=== PATIENT | female | born 1955 | race Caucasian/White ===

== ENCOUNTER → 2016-11-12 | Outpatient (CLI) | payer BC ==
--- NOTE | 2016-11-12 10:48 | REPMRS ---
Patient History The patient states she had a clinical breast exam in 11/2016. Patient is postmenopausal. Family history of breast cancer in maternal aunt, breast cancer in paternal aunt, and prostate cancer in maternal uncle at age 50 or over. Benign ultrasound-guided FNA biopsy of the right breast, July 19, 2007. Taking unspecified hormones for 4 years. Digital Woman Screen Mammo: November 12, 2016 - Exam #: [id number] Bilateral CC and MLO view(s) were taken. Technologist: Sophie Roberts, Technologist Prior study comparison: October 24, 2015, digital woman screen mammo performed at [facility]. August 29, 2014, digital woman screen mammo performed at [facility]. August 29, 2013, digital woman screen mammo performed at [facility]. FINDINGS: There are scattered fibroglandular densities. There has been no change in the appearance of the mammogram from the prior studies. There is a needle biopsy marker clip in the right breast. There is a mild amount of scattered fibroglandular density which is fairly symmetric. There is no interval development of dominant mass, architectural distortion, or clustered microcalcification suggestive of malignancy. ASSESSMENT: BI-RADS/ACR category 2 mammogram. Benign finding(s). Recommendation Routine screening mammogram in 1 year (for women over age 40). This mammogram was interpreted with the aid of an FDA-approved computer-aided dectection system. Electronically Signed By: Jose Luis Santiago MD 11/12/16 1048
== END ==
LOC: M WHC 08:17
PROVIDERS: ATTEND Nurse Practitioner Family
DX: Z12.31 Encounter for screening mammogram for malignant neoplasm of breast (principal)

== ENCOUNTER 2016-11-18 17:36 | Inpatient (IN) | payer BC, SELFPAY ==
[~2016-11-18] VITALS: Ht 144.8 cm; Wt 77.8 kg
[2016-11-18] MEDS ORDERED: ONDANSETRON 4MG/2ML VIAL (J2405) As Ordered ONE ×3 (18:37→22:51)
[2016-11-18 19:03] LABS: BASO % 0.1 % (0.0-1.0); EOS # 0.1 K/mm3 (0.0-0.50); EOS % 0.5 % (0.0-3.0); LARGE UNSTAINED CELL # 0.1 K/mm3 (0.0-0.4); LARGE UNSTAINED CELL % 0.6 % (0.0-4.0); LYMPH # 1.1 K/mm3 (1.5-4.5); LYMPH % 6.4 % (24.0-44.0); MEAN CORPUSCULAR HEMOGLOBIN 30.7 pg (27.0-33.0); MEAN CORPUSCULAR HGB CONC 33.4 g/dl (32.0-36.5); MEAN CORPUSCULAR VOLUME 91.7 fl (80.0-96.0); MONO % 6.3 % (0.0-5.0); NEUTROPHILS # 13.4 K/mm3 (1.8-7.7); NEUTROPHILS % 86.1 % (36.0-66.0); PLATELET COUNT, AUTOMATED 207 k/mm3 (150-450); RED CELL DISTRIBUTION WIDTH 13.3 % (11.5-14.5); WHITE BLOOD COUNT 15.6 K/mm3 (4.0-10.0)
[2016-11-18 19:18] LABS: ALBUMIN/GLOBULIN RATIO 1.11 (1.00-1.93); ALKALINE PHOSPHATASE 115 U/L (45-117); ALT/SGPT 37 U/L (12-78); ANION GAP 10 MEQ/L (8-16); AST/SGOT 27 U/L (15-37); BILIRUBIN,DIRECT 0.2 MG/DL (0.0-0.2); BILIRUBIN,TOTAL 0.7 MG/DL (0.2-1.0); BLOOD UREA NITROGEN 13 MG/DL (7-18); CARBON DIOXIDE LEVEL 26 MEQ/L (21-32); CHLORIDE LEVEL 102 MEQ/L (98-107); CREATININE FOR GFR 0.81 MG/DL (0.55-1.02); GLOMERULAR FILTRATION RATE > 60.0 (>51); GLUCOSE, FASTING 126 MG/DL (70-105); POTASSIUM SERUM 4.6 MEQ/L (3.5-5.1); SODIUM LEVEL 138 MEQ/L (136-145); TOTAL PROTEIN 7.6 GM/DL (6.4-8.2)
[2016-11-18] MEDS ORDERED: ISOVUE-370 76% 100ML VIAL (Q9967) As Ordered ONE (19:25)
[2016-11-18] MEDS ORDERED: MORPHINE 4 MG/ML 1ML SYRINGE As Ordered ONE (19:54)
--- NOTE | 2016-11-18 20:40 | REPUSA ---
CT of the abdomen and pelvis with contrast Clinical statement: Pain. Technique: Multiple axial CT images were obtained from the base of the lungs through the floor of the pelvis utilizing 5 mm axial slices after administration of nonionic intravenous contrast. Coronal an d sagittal reconstructions were also obtained. No comparison is available. Findings: Chest: The visualized lung bases are clear. Abdomen: The liver, spleen, pancreas, kidneys, gallbladder, and adrenal glands are unremarkable. The aorta is within normal limits. There is no evidence of abdominal lymphadenopathy or ascites. Pelvis: The appendix is significantly thickened and inflamed, measuring 17 mm in diameter. Surroundin g inflammatory stranding is noted, but no surrounding free fluid is seen. There is no evidence of per foration or abscess. The remainder of the bowel is unremarkable. The urinary bladder is within normal limits. The other pelvic structures appear grossly intact. There is no evidence of pelvic lymphadeno gen. There is a small amount of free fluid in the cul-de-sac. Bones: There are no suspicious osseous abnormalities seen. Impression: Acute appendicitis as described. ER physician was notified of these findings at 8:35 PM o n 11/18/2016.
[2016-11-18] MEDS ORDERED: VITMTA PO (21:26)
[2016-11-18] MEDS ORDERED: VERA27.5 (21:26)
[2016-11-18] MEDS ORDERED: FEXO180T58 PO (21:26)
[2016-11-18] MEDS ORDERED: ASPI81CH PO (21:26)
[2016-11-18] MEDS ORDERED: CALC1TAB30 PO (21:26)
[2016-11-18] MEDS ORDERED: ACET50TAOT PO (21:28)
[2016-11-18] MEDS ORDERED: PARO-39 PO (21:28)
[2016-11-18] MEDS ORDERED: AMLO5TAB2 PO (21:28)
[2016-11-18] MEDS ORDERED: SIMV40TA2 PO (21:28)
[2016-11-18] MEDS ORDERED: BENI20TA5 PO (21:28)
[2016-11-18] MEDS ORDERED: BUPIVACAINE/EPIN 0.25% 30 ML VIAL As Ordered ONE (21:35)
[2016-11-18] MEDS ORDERED: ZOSYN 3.375 GM VIAL (J2543) As Ordered ONE (21:46)
[2016-11-18] MEDS ORDERED: SENN1TAB2 PO (21:50)
[2016-11-18] MEDS ORDERED: NORC5TAB PO (21:50)
--- NOTE | 2016-11-18 22:01 | EDDOCDS ---
Physician Documentation [facility] Name: Casandra Gilliland Age: 61 yrs Sex: Female : 1955 Arrival Date: 11/18/2016 Time: 17:36 Bed I1 / M1 Private MD: Warren Lundberg MD Disposition: 11/18/16 21:22 Hospitalization ordered by Derik Mazariegos for Inpatient Admission. Preliminary diagnosis is Acute appendicitis with localized peritonitis. - Bed requested for Admit. - Status is Inpatient Admission. cf2 - Condition is Stable. - Problem is new. - Symptoms are unchanged. Historical: - Allergies: Nickel (Rash); SULFA (SULFONAMIDES) (Rash); Latex (Rash); Augmentin (Rash); - Home Meds: 1. aspirin 81 mg Oral tab 1 tab once daily (Last dose: 11/18/2016 04:30) 2. tramadol 50 mg Oral tab 1 tab every 4-6 hours as needed (Last dose: Unknown) 3. Veramyst 27.5 mcg/actuation nasal spsn 2 sprays once daily as needed (Last dose: Unknown) 4. multivitamin Oral tab 1 tablet daily (Last dose: 11/18/2016 04:30) 5. Oyster Shell Calcium-Vit D3 500 mg(1,250mg) -200 unit Oral tab daily (Last dose: 11/18/2016 04:30) 6. fexofenadine 180 mg Oral tab 1 tab once daily as needed (Last dose: Unknown) 7. pravastatin 40 mg oral tab 2 tabs nightly (Last dose: 11/17/2016) 8. allergy injections every 3 weeks 9. Benicar 20 mg oral tab 1 tab once daily (Last dose: 11/18/2016 04:30) 10. amlodipine 5 mg Oral tab 1 tab once daily (Last dose: 11/18/2016 04:30) - PMHx: allergies; Hypertension; Hypercholesterolemia; back pain; - PSHx: Hysterectomy; Biopsy, Breast- Right; skin graft left ear; polyps removed from uterus; - Social history: Smoking status: Patient states former smoker of tobacco. No barriers to communication noted, The patient speaks fluent Albanian. - Family history: Not pertinent. - : The pt / caregiver states he / she is not on anticoagulants. Home medication list is obtained from the patient. - Exposure Risk Screening:: None identified. Vital Signs: 11/18 17:40 BP 158 / 88; Pulse 68; Resp 18; Temp 98.3; Pulse Ox 99% ; Weight 75.3 kg / 166.01 lbs; elp Height 4 ft. 11 in. (149.86 cm); 21:57 BP 130 / 79; Pulse 70; Resp 18; Temp 99.2(TE); Pulse Ox 96% on R/A; Pain 8/10; mdr 17:40 Body Mass Index 33.53 (75.30 kg, 149.86 cm) elp MDM: 18:33 NS 0.9% 1000 ml IV at bolus once ordered. mo1 18:33 Ondansetron 4 mg IVP once ordered. mo1 18:33 IV Saline Lock ordered. mo1 18:33 Undress patient appropriately for examination ordered. mo1 18:33 CT ABD & PELVIS: IV Contrast Only Ordered. EDMS 18:34 Basic Metabolic Profile Ordered. EDMS 18:34 CBC with Diff Ordered. EDMS 18:34 Lipase Ordered. EDMS 18:34 Liver Profile Ordered. EDMS 18:34 Urinalysis Ordered. EDMS 18:34 Urine Culture Ordered. EDMS 18:35 NOTHING BY MOUTH+DIET ordered. EDMS 18:58 Financial registration complete. gjb 19:03 [facility] Payment Agreement was scanned into [employer] and attached to record. gjb 19:39 morphine 4 mg IVP once ordered. mo1 19:39 Ondansetron 4 mg IVP once ordered. mo1 19:39 CBC with Diff Reviewed. mo1 19:40 Basic Metabolic Profile Reviewed. mo1 19:40 Lipase Reviewed. mo1 19:40 Liver Profile Reviewed. mo1 20:09 Urinalysis Reviewed. mo1 20:38 BED REQUEST+ADM ordered. EDMS 21:05 ECG WITH READING ER PHYS+CARDIAG ordered. EDMS 21:22 Admission Orders was scanned into [employer] and attached to record. ml3 Administered Medications: 18:48 Drug: NS 0.9% 1000 ml [sodium chloride 0.9 % intravenous solution] Route: IV; Rate: kr3 bolus; Site: left hand; 18:48 Drug: Ondansetron 4 mg Route: IVP; Site: left hand; kr3 20:00 Drug: morphine 4 mg [morphine 4 mg/mL intravenous cartridge (1 mL)] Route: IVP; Site: cf2 left antecubital; 20:00 Drug: Ondansetron 4 mg Route: IVP; Site: left antecubital; cf2 Signatures: Dispatcher [employer] Gudelia Mcelroy, RN RN j Aubrey Kauffmanzabeth, Customs Compliance Director Unit ml3 Jong Addison PA PA mo1 Larissa Mack Christina, RN RN cf2 Rossy Rodríguez RN kr3 The chart was reviewed and I authenticate all verbal orders and agree with the evaluation and treatment provided.Attachments: 19:03 [facility] Payment Agreement gj 21:22 Admission Orders ml3 MTDD
--- NOTE | 2016-11-18 22:01 | EDDOCDS ---
Nurse's Notes [facility] Name: Casandra Gilliland Age: 61 yrs Sex: Female : 1955 Arrival Date: 11/18/2016 Time: 17:36 Bed I1 / M1 Private MD: Warren Lundberg MD Diagnosis: Acute appendicitis with localized peritonitis Presentation: 11/18 17:48 Presenting complaint: Patient states: right flank and abdominal since 1030 this [facility] morning, seen at Urgent care , sent here for evaluation. Adult Sepsis Screening: The patient does not have new or worsening altered mentation. Patient's respiratory rate is less than 22. Systolic blood pressure is greater than 100. Patient has a qSOFA score of. Suicide/Homicide risk assessment- the patient denies having any suicidal and/or homicidal ideations and does not present with any other emotional, behavioral or mental health complaints. Status: Patient is not a service desk director or dependent. Transition of care: Patient was received from [facility]. 17:48 Acuity: ANN-MARIE Level 3 [facility] 17:48 Method Of Arrival: Walkin/Carried/Asstd [facility] Triage Assessment: 17:57 General: Appears uncomfortable, Behavior is appropriate for age, pleasant. Pain: [facility] Location: right flank Pain currently is 9 out of 10 on a pain scale. Pain radiates to right lower quadrant. Pt Declines HIV testing. Neurological: Level of Consciousness is awake, alert, Oriented to person, place, time. Respiratory: Airway is patent Respiratory effort is even, unlabored, Respiratory pattern is regular, symmetrical. GI: Reports lower abdominal pain, nausea, Pain is 9 out of 10 on a pain scale. : Reports pain in right flank(s) Pain is 9 out of 10 on a pain scale. Derm: Skin is pink, warm & dry. Historical: - Allergies: Nickel (Rash); SULFA (SULFONAMIDES) (Rash); Latex (Rash); Augmentin (Rash); - Home Meds: 1. aspirin 81 mg Oral tab 1 tab once daily (Last dose: 11/18/2016 04:30) 2. tramadol 50 mg Oral tab 1 tab every 4-6 hours as needed (Last dose: Unknown) 3. Veramyst 27.5 mcg/actuation nasal spsn 2 sprays once daily as needed (Last dose: Unknown) 4. multivitamin Oral tab 1 tablet daily (Last dose: 11/18/2016 04:30) 5. Oyster Shell Calcium-Vit D3 500 mg(1,250mg) -200 unit Oral tab daily (Last dose: 11/18/2016 04:30) 6. fexofenadine 180 mg Oral tab 1 tab once daily as needed (Last dose: Unknown) 7. pravastatin 40 mg oral tab 2 tabs nightly (Last dose: 11/17/2016) 8. allergy injections every 3 weeks 9. Benicar 20 mg oral tab 1 tab once daily (Last dose: 11/18/2016 04:30) 10. amlodipine 5 mg Oral tab 1 tab once daily (Last dose: 11/18/2016 04:30) - PMHx: allergies; Hypertension; Hypercholesterolemia; back pain; - PSHx: Hysterectomy; Biopsy, Breast- Right; skin graft left ear; polyps removed from uterus; - Social history: Smoking status: Patient states former smoker of tobacco. No barriers to communication noted, The patient speaks fluent Albanian. - Family history: Not pertinent. - : The pt / caregiver states he / she is not on anticoagulants. Home medication list is obtained from the patient. - Exposure Risk Screening:: None identified. Screenin:50 Screening information is obtained from the patient. Fall risk: No risks identified. rs3 Assistance ADL's: requires no assistance with activities of daily living. Abuse/DV Screen: The patient / caregiver reports he/she is: not in a situation that causes fear, pain or injury. Nutritional screening: No deficits noted. Advance Directives: Currently, there is no health care proxy. There is no active DNR order. home support is adequate. Assessment: 18:49 General: Appears in no apparent distress, Behavior is appropriate for age, cooperative. rs3 Pain: Location: right lower quadrant. Neurological: Level of Consciousness is awake, alert, Oriented to person, place, time. Respiratory: Airway is patent Respiratory effort is even, unlabored. GI: Abdomen is non- distended Bowel sounds present X 4 quads. Abd is soft X 4 quads Abd is tender to palpation in suprapubic area and right lower quadrant. Derm: Skin is pink, warm & dry. 19:22 Adult Sepsis Screening: The patient does not have new or worsening altered mentation. dsf Patient's respiratory rate is less than 22. Systolic blood pressure is greater than 100. Patient has a qSOFA score of 0- Negative Sepsis Screen. General: Appears in no apparent distress, Behavior is appropriate for age, cooperative. Neurological: Level of Consciousness is awake, alert. Cardiovascular: Capillary refill < 3 seconds. Respiratory: Airway is patent Respiratory effort is even, unlabored, Respiratory pattern is regular, symmetrical. Derm: Skin is pink, warm & dry. 20:37 Reassessment: Patient resting more comfortably, PA over to speak with patient, cf2 +appendicitis . 21:59 General: Appears comfortable, Behavior is appropriate for age, cooperative. cf2 Vital Signs: 17:40 BP 158 / 88; Pulse 68; Resp 18; Temp 98.3; Pulse Ox 99% ; Weight 75.3 kg; Height 4 ft. elp 11 in. (149.86 cm); 21:57 BP 130 / 79; Pulse 70; Resp 18; Temp 99.2(TE); Pulse Ox 96% on R/A; Pain 8/10; mdr 17:40 Body Mass Index 33.53 (75.30 kg, 149.86 cm) [facility] Vitals: 17:40 Log In Time: November 18, 2016 at 17:38. [facility] ED Course: 17:37 Patient visited by Laurel Colon PCA. elp 17:37 Patient moved to Waiting elp 17:38 Warren Lundberg is Private Physician. elp 17:40 Patient visited by Laurel Colon PCA. elp 17:40 Patient moved to Pre RCE elp 17:49 Triage Initiated kpj 18:07 Patient moved to Triage 1 mdr 18:15 Jong Addison PA is PHCP. mo1 18:15 Milana Daniel MD is Attending Physician. mo1 18:28 Patient moved to I1 / M1 dsf 18:32 Patient visited by Jong Addison PA. mo1 18:48 Inserted saline lock: 22 gauge in left hand The patient tolerated the procedure well. kr3 18:48 Basic Metabolic Profile Sent. kr3 18:48 CBC with Diff Sent. kr3 18:48 Lipase Sent. kr3 18:48 Liver Profile Sent. kr3 18:51 No procedures done that require assistance. rs3 19:03 [facility] Payment Agreement was scanned into [employer] and attached to record. gjb 19:14 Sammi Ortega,TAMI is Primary Nurse. cf2 19:14 Patient visited by Sammi Ortega RN. cf2 19:16 Patient visited by Sammi Ortega RN. cf2 19:22 Urinalysis Sent. dsf 19:22 Urine Culture Sent. dsf 19:23 Patient visited by Ely Hodges RN. dsf 20:04 Patient visited by Sammi Ortega RN. cf2 20:37 Patient visited by Sammi Ortega RN. cf2 20:37 The patient / caregiver is instructed regarding the plan of care and ED course. Patient cf2 has correct armband on for positive identification. Placed in gown. Bed in low position. Call light in reach. Side rails up X 1. Side rails up X2. Property :Personal belongings accompany Pt. Door closed. Noise minimized. Visitors limited. Lights dimmed. Moved to private room. Verbal reassurance given. Warm blanket given. Pillow given. Head of bed elevated. Diet: Patient is NPO. 21:12 CT ABD & PELVIS: IV Contrast Only Returned. EDMS 21:22 Patient visited by Sammi Ortega RN. cf2 21:22 Derik Mazariegos DO is Hospitalizing Provider. mo1 21:22 Admission Orders was scanned into [employer] and attached to record. ml3 21:34 EKG done. (by ED staff). Reviewed by Jong LUKE. mdr 21:35 Patient visited by Andres العراقي, GENERAL MANAGER LAND DEPARTMENT. mdr 21:58 Patient visited by Andres العراقي, GENERAL MANAGER LAND DEPARTMENT. mdr Administered Medications: 18:48 Drug: NS 0.9% 1000 ml [sodium chloride 0.9 % intravenous solution] Route: IV; Rate: kr3 bolus; Site: left hand; 18:48 Drug: Ondansetron 4 mg Route: IVP; Site: left hand; kr3 20:00 Drug: morphine 4 mg [morphine 4 mg/mL intravenous cartridge (1 mL)] Route: IVP; Site: cf2 left antecubital; 20:00 Drug: Ondansetron 4 mg Route: IVP; Site: left antecubital; cf2 Order Results: Lab Order: Basic Metabolic Profile; SPEC'M 11/18/16 18:43 Test: GLUCOSE, FASTING; Value: 126; Range: 70-105; Abnormal: Above high normal; Units: MG/DL; Status: F Test: BLOOD UREA NITROGEN; Value: 13; Range: 7-18; Units: MG/DL; Status: F Test: CREATININE FOR GFR; Value: 0.81; Range: 0.55-1.02; Units: MG/DL; Status: F Test: GLOMERULAR FILTRATION RATE; Value: > 60.0; Range: >51; Status: F Test: SODIUM LEVEL; Value: 138; Range: 136-145; Units: MEQ/L; Status: F Test: POTASSIUM SERUM; Value: 4.6; Range: 3.5-5.1; Units: MEQ/L; Status: F Test: CHLORIDE LEVEL; Value: 102; Range: 98-107; Units: MEQ/L; Status: F Test: CARBON DIOXIDE LEVEL; Value: 26; Range: 21-32; Units: MEQ/L; Status: F Test: ANION GAP; Value: 10; Range: 8-16; Units: MEQ/L; Status: F Test: CALCIUM LEVEL; Value: 9.0; Range: 8.5-10.1; Units: MG/DL; Status: F Test Note: ; Units are mL/min/1.73 m2 Chronic Kidney Disease Staging per NKF: Stage I & II GFR >=60 Normal to Mildly Decreased Stage III GFR 30-59 Moderately Decreased Stage IV GFR 15-29 Severely Decreased Stage V GFR <15 Very Little GFR Left ESRD GFR <15 on HOUSE MANAGER Lab Order: CBC with Diff; SPEC'M 11/18/16 18:43 Test: WHITE BLOOD COUNT; Value: 15.6; Range: 4.0-10.0; Abnormal: Above high normal; Units: K/mm3; Status: F Test: RED BLOOD COUNT; Value: 4.81; Range: 4.00-5.40; Units: M/mm3; Status: F Test: HEMOGLOBIN; Value: 14.7; Range: 12.0-16.0; Units: g/dl; Status: F Test: HEMATOCRIT; Value: 44.1; Range: 36.0-47.0; Units: %; Status: F Test: MEAN CORPUSCULAR VOLUME; Value: 91.7; Range: 80.0-96.0; Units: fl; Status: F Test: MEAN CORPUSCULAR HEMOGLOBIN; Value: 30.7; Range: 27.0-33.0; Units: pg; Status: F Test: MEAN CORPUSCULAR HGB CONC; Value: 33.4; Range: 32.0-36.5; Units: g/dl; Status: F Test: RED CELL DISTRIBUTION WIDTH; Value: 13.3; Range: 11.5-14.5; Units: %; Status: F Test: PLATELET COUNT, AUTOMATED; Value: 207; Range: 150-450; Units: k/mm3; Status: F Test: NEUTROPHILS %; Value: 86.1; Range: 36.0-66.0; Abnormal: Above high normal; Units: %; Status: F Test: LYMPH %; Value: 6.4; Range: 24.0-44.0; Abnormal: Below low normal; Units: %; Status: F Test: MONO %; Value: 6.3; Range: 0.0-5.0; Abnormal: Above high normal; Units: %; Status: F Test: EOS %; Value: 0.5; Range: 0.0-3.0; Units: %; Status: F Test: BASO %; Value: 0.1; Range: 0.0-1.0; Units: %; Status: F Test: LARGE UNSTAINED CELL %; Value: 0.6; Range: 0.0-4.0; Units: %; Status: F Test: NEUTROPHILS #; Value: 13.4; Range: 1.8-7.7; Abnormal: Above high normal; Units: K/mm3; Status: F Test: LYMPH #; Value: 1.1; Range: 1.5-4.5; Abnormal: Below low normal; Units: K/mm3; Status: F Test: MONO #; Value: 1.0; Range: 0.0-0.8; Abnormal: Above high normal; Units: K/mm3; Status: F Test: EOS #; Value: 0.1; Range: 0.0-0.50; Units: K/mm3; Status: F Test: BASO #; Value: 0.0; Range: 0.0-0.2; Units: K/mm3; Status: F Test: LARGE UNSTAINED CELL #; Value: 0.1; Range: 0.0-0.4; Units: K/mm3; Status: F Lab Order: Lipase; [facility] 11/18/16 18:43 Test: LIPASE; Value: 131; Range: 73-393; Units: U/L; Status: F Lab Order: Liver Profile; [facility] 11/18/16 18:43 Test: AST/SGOT; Value: 27; Range: 15-37; Units: U/L; Status: F Test: ALT/SGPT; Value: 37; Range: 12-78; Units: U/L; Status: F Test: ALKALINE PHOSPHATASE; Value: 115; Range: 45-117; Units: U/L; Status: F Test: BILIRUBIN,TOTAL; Value: 0.7; Range: 0.2-1.0; Units: MG/DL; Status: F Test: BILIRUBIN,DIRECT; Value: 0.2; Range: 0.0-0.2; Units: MG/DL; Status: F Test: TOTAL PROTEIN; Value: 7.6; Range: 6.4-8.2; Units: GM/DL; Status: F Test: ALBUMIN; Value: 4.0; Range: 3.2-5.2; Units: GM/DL; Status: F Test: ALBUMIN/GLOBULIN RATIO; Value: 1.11; Range: 1.00-1.93; Status: F Lab Order: Urinalysis; [facility] 11/18/16 19:20 Test: APPEARANCE, URINE; Value: CLEAR; Range: CLEAR; Status: F Test: COLOR, URINE; Value: YELLOW; Range: YELLOW; Status: F Test: PH,URINE; Value: 7.0; Range: 5.0-9.0; Units: UNITS; Status: F Test: SPECIFIC GRAVITY URINE AUTO; Value: 1.020; Range: 1.002-1.035; Status: F Test: PROTEIN, URINE AUTO; Value: NEGATIVE; Range: NEGATIVE; Units: mg/dL; Status: F Test: GLUCOSE, URINE (UA) AUTO; Value: NEGATIVE; Range: NEGATIVE; Units: mg/dL; Status: F Test: KETONE, URINE AUTO; Value: 1+; Range: NEGATIVE; Abnormal: Above high normal; Units: mg/dL; Status: F Test: UROBILINOGEN, URINE AUTO; Value: 0.2; Range: 0.0-2.0; Units: mg/dL; Status: F Test: BILIRUBIN, URINE AUTO; Value: NEGATIVE; Range: NEGATIVE; Status: F Test: NITRITE, URINE AUTO; Value: NEGATIVE; Range: NEGATIVE; Status: F Test: LEUKOCYTE ESTERASE, URINE AUTO; Value: NEGATIVE; Range: NEGATIVE; Status: F Test: BLOOD, URINE BLOOD; Value: NEGATIVE; Range: NEGATIVE; Status: F Test: WBC, URINE AUTO; Value: 0; Range: 0-3; Units: /HPF; Status: F Test: RBC, URINE AUTO; Value: 2; Range: 0-3; Units: /HPF; Status: F Test: BACTERIA, URINE AUTO; Value: NEGATIVE; Range: NEGATIVE; Status: F Test: SQUAMOUS EPITHELIAL CELL UR AU; Value: 0; Range: 0-6; Units: /HPF; Status: F Test: MUCUS, URINE; Value: SMALL; Range: NEGATIVE; Status: F Test: HYALINE CAST, URINE AUTO; Value: 0; Range: 0-1; Units: /LPF; Status: F Radiology Order: CT ABD & PELVIS: IV Contrast Only Test: CT ABD & PELVIS: IV Contrast Only REASON FOR EXAMINATION: lower abd pain, worse on right; ; CT of the abdomen and pelvis with contrast; Clinical statement: Pain.; Technique: Multiple axial CT images were obtained from the base of the lungs through the floor of the; pelvis utilizing 5 mm axial slices after administration of nonionic intravenous contrast. Coronal an; d sagittal reconstructions were also obtained.; No comparison is available.; Findings:; Chest: The visualized lung bases are clear.; Abdomen: The liver, spleen, pancreas, kidneys, gallbladder, and adrenal glands are unremarkable. The; aorta is within normal limits. There is no evidence of abdominal lymphadenopathy or ascites.; Pelvis: The appendix is significantly thickened and inflamed, measuring 17 mm in diameter. Surroundin; g inflammatory stranding is noted, but no surrounding free fluid is seen. There is no evidence of per; foration or abscess. The remainder of the bowel is unremarkable. The urinary bladder is within normal; limits. The other pelvic structures appear grossly intact. There is no evidence of pelvic lymphadeno; gen. There is a small amount of free fluid in the cul-de-sac.; Bones: There are no suspicious osseous abnormalities seen.; Impression: Acute appendicitis as described. ER physician was notified of these findings at 8:35 PM o; n 11/18/2016.; ; Outcome: 21:22 Decision to Hospitalize by Provider. mo1 21:59 Discharge Assessment: Patient awake, alert and oriented x 3. No cognitive and/or cf2 functional deficits noted. Patient verbalized understanding of disposition instructions. Patient awake and alert. Oriented to person, place and time. patient administered narcotics - yes. The following High Risk Discharge criteria are identified: None. Admitted to OR. Condition: good Condition: stable. CT Study completed. 22:00 Patient left the ED. cf2 Signatures: Dispatcher [employer] EDMS Gudelia Chou, RN RN Cameron Caravjal, Case Filler Unit ml3 Rossy RodríguezRN RN kr3 Roslyn DialloRN RN rs3 Ely Hodges,RN RN dsJong Larson PA PA mo1 Laurel Colon, GENERAL MANAGER LAND DEPARTMENT GENERAL MANAGER LAND DEPARTMENT andreasp Andres العراقي, GENERAL MANAGER LAND DEPARTMENT GENERAL MANAGER LAND DEPARTMENT Larissa Cha Christina,RN RN cf2 MTDStephanie
[2016-11-18] MEDS ORDERED: PROPOFOL 200 MG/20 ML VIAL As Ordered ONE (22:51)
[2016-11-18] MEDS ORDERED: MIDAZOLAM INJ 2 MG/2 ML VIAL (J2250) As Ordered ONE (22:51)
[2016-11-18] MEDS ORDERED: LIDOCAINE 2% INJ 100 MG/5 ML SDV (FOR ANES.) As Ordered ONE (22:51)
[2016-11-18] MEDS ORDERED: fentaNYL 250 MCG/5 ML INJECTION (J3010) As Ordered ONE (22:51)
[2016-11-18] MEDS ORDERED: METOCLOPRAMIDE INJ 10MG/2ML VIAL (J2765) As Ordered ONE (22:51)
[2016-11-18] MEDS ORDERED: KETOROLAC 60 MG/2 ML VIAL (J1885) As Ordered ONE (22:51)
[2016-11-18] MEDS ORDERED: PHENYLephrine HCL 500 MCG/5 ML (100MCG/ML) SYRINGE (J2370) As Ordered ONE (22:51)
[2016-11-18] MEDS ORDERED: NEOSTIGMINE 1MG/ML 5 ML SYRINGE (J2710) As Ordered ONE (22:51)
[2016-11-18] MEDS ORDERED: GLYCOPYRROLATE INJ 0.2 MG/ML 2 ML VIAL As Ordered ONE (22:52)
[2016-11-18] MEDS ORDERED: ROCURONIUM BROMIDE 50 MG/5 ML VIAL As Ordered ONE (22:52)
--- NOTE | 2016-11-18 22:53 | HPE ---
DATE OF ADMISSION: 11/18/2016 REASON FOR CONSULTATION: Abdominal pain. HISTORY OF PRESENT ILLNESS: The patient is a 61-year-old female who started with right lower quadrant abdominal pain around 10:30 this morning. The pain got progressive worse throughout the day. Her coworkers talked her into coming to the emergency room for evaluation. In the ER she had elevated white count as well as CT findings positive for appendicitis. I was called to evaluate. On examination, the patient is complaining of nausea, right lower quadrant pain. She has not had any trauma to the area. No recent travel. No recent illnesses. No change in bowel or bladder habits. No fevers. PAST MEDICAL HISTORY: Hypertension, hyperlipidemia. PAST SURGICAL HISTORY: Tonsillectomy, tubal ligation, hysterectomy. Skin graft, breast biopsy. ALLERGIES: SULFA, AMOXICILLIN. HOME MEDICATIONS: Please see medical record. REVIEW OF SYSTEMS: Pertinent positives and negatives stated in the HPI. PHYSICAL EXAMINATION: General: Alert and oriented times three. No acute distress. Vital signs: Stable, afebrile. HEENT: Pupils equal, round, react to light and accommodation. Heart: S1-S2, regular rate and rhythm. Lungs clear to auscultation bilaterally. Abdomen soft, tender to palpation right lower quadrant. No rebounding or rigidity. Bowel sounds positive. Extremities: No clubbing, cyanosis or edema. LABORATORY DATA: White count 15.6, hemoglobin 14.7, platelets 207. Potassium 4.6, creatinine 0.81. IMAGING STUDIES: CT abdomen and pelvis shows a dilated appendix at 17 mm. It is thickened and inflamed with surrounding inflammatory fat stranding. No signs of free fluid in the pelvis. No signs of the appendiceal rupture. ASSESSMENT/PLAN: The patient 61-year-old female with signs consistent with acute appendicitis. RECOMMENDATIONS: Proceed with laparoscopic, possible open appendectomy. Risks and benefits of the procedure not limited but including bleeding, infection, hernia formation, damage to surrounding structures, need for further surgery discussed in detail with the patient. Informed was obtained and procedure was planned. After surgery she will be discharged home and will follow up with me in the office in 2 weeks.
[2016-11-18] MEDS ORDERED: CIPR500T89 PO (23:11)
[2016-11-18] MEDS ORDERED: FLAG500T PO (23:11)
[2016-11-18] MEDS ORDERED: SUGAMMADEX SODIUM 500 MG/5 ML VIAL (BRIDION) As Ordered ONE (23:16)
[2016-11-18] MEDS ORDERED: LR 1,000 ML IV SCH (23:45)
[2016-11-18] MEDS ORDERED: fentaNYL 100 MCG/2 ML INJECTION (J3010) IV PRN (23:45)
[2016-11-18] MEDS ORDERED: PERCOCET 5MG/325MG TAB PO PRN (23:45)
[2016-11-18] MEDS ORDERED: ePHEDrine SULFATE 25 MG/5 ML(5MG/ML) SYRINGE As Ordered ONE (23:54)
[2016-11-18] MEDS: ePHEDrine SULFATE 25 MG/5 ML(5MG/ML) SYRINGE IV SCH (23:55)
[2016-11-19] VITALS (8 sets, daily range): BP systolic 92–128; BP diastolic 57–74
[2016-11-19] MEDS: ePHEDrine SULFATE 25 MG/5 ML(5MG/ML) SYRINGE IV SCH ×2 (00:05)
[2016-11-19] MEDS ORDERED: ePHEDrine SULFATE 25 MG/5 ML(5MG/ML) SYRINGE IV SCH (00:15)
[2016-11-19] MEDS ORDERED: LR 500 ML IV SCH ×2 (00:45)
[2016-11-19] MEDS ORDERED: PIPERACILLIN/TAZOBACTAM SOD 3.375 GM in D5W MINI-BAG PLUS 50 ML IV ONE (05:15)
[2016-11-19] MEDS ORDERED: ACETAMINOPHEN TAB 650MG DOSE (2X325MG) PO ONE (05:15)
[2016-11-19] MEDS ORDERED: LR 1,000 ML IV SCH (05:15)
--- NOTE | 2016-11-19 06:57 | RO ---
DATE OF PROCEDURE: 11/18/2016 PREOPERATIVE DIAGNOSIS: Acute appendicitis. POSTOPERATIVE DIAGNOSIS: Acute appendicitis. PROCEDURE: Laparoscopic appendectomy. SURGEON: Dr. Derik Mazariegos ENGINEERING PROGRAM MANAGER: None. ANESTHESIA: General: ESTIMATED BLOOD LOSS: 5. COMPLICATIONS: None. INDICATIONS FOR PROCEDURE: The patient is a 61-year-old female who presents with right lower quadrant pain that started at 9:30 this morning. She came in and had an elevated white count as well as CT findings of acute appendicitis. Recommendation was to proceed laparoscopic, possible open appendectomy. Risks and the benefits of the procedure not limited to, but including bleeding, infection, hernia formation, damage to surrounding structures, need for further surgery were discussed in detail with the patient. Informed consent was obtained and the procedure was planned. PROCEDURE: The patient was brought back to operating room three after sufficient sedation and the abdomen was sterilely prepped and draped. Next, a time out was done to confirm proper patient and proper procedure. Following that, a 5 mm incision was made in the left lower quadrant. Veress needle inserted and the abdomen was insufflated to 15 mmHg. Next, the Veress needle was removed. A 5 mm OptiView port was then used to gain access to the abdomen. Once the abdomen was entered, an 8 mm port was placed at the umbilicus and a 5 mm port suprapubically in the midline. The appendix was easily identified in the right lower quadrant. It was very large and inflamed. It was grasped and elevated up and the mesoappendix was taken down using the Enseal. During that process, the appendix burst open on its own. The appendix was then amputated using the PDS Endoloops and then transected using the Enseal and brought out in a 5 mm EndoCatch bag. Next, the suction device was used to aspirate all the contents that had leaked out of the appendix. A couple hundred mL of saline was then irrigated and suctioned out to clear the right lower quadrant. Once this was completed, the abdomen was desufflated. Skin incisions were closed with #4-0 Vicryl subcuticular sutures. The abdomen was cleaned and dried. Steri-Strips, 4x4 and tape were applied, thus ending the procedure.
[2016-11-19] MEDS ORDERED: MORPHINE 2 MG/ML 1ML SYRINGE IV PRN (07:00)
[2016-11-19] MEDS ORDERED: ONDANSETRON 4MG/2ML VIAL (J2405) IV PRN (07:00)
[2016-11-19] MEDS ORDERED: MOM 30ML SUSPENSION UDC PO PRN (07:00)
[2016-11-19 07:21] LABS: MEAN CORPUSCULAR HEMOGLOBIN 30.9 pg (27.0-33.0); MEAN CORPUSCULAR HGB CONC 33.1 g/dl (32.0-36.5); MEAN CORPUSCULAR VOLUME 93.2 fl (80.0-96.0); RED CELL DISTRIBUTION WIDTH 13.4 % (11.5-14.5); WHITE BLOOD COUNT 9.1 K/mm3 (4.0-10.0)
[2016-11-19 07:35] LABS: ANION GAP 9 MEQ/L (8-16); BLOOD UREA NITROGEN 9 MG/DL (7-18); CARBON DIOXIDE LEVEL 26 MEQ/L (21-32); CHLORIDE LEVEL 103 MEQ/L (98-107); CREATININE FOR GFR 0.85 MG/DL (0.55-1.02); GLOMERULAR FILTRATION RATE > 60.0 (>51); GLUCOSE, FASTING 120 MG/DL (70-105); POTASSIUM SERUM 4.7 MEQ/L (3.5-5.1); SODIUM LEVEL 138 MEQ/L (136-145)
[2016-11-19] MEDS: metroNIDAZOLE 500 MG in APPROPRIATE DILUENT 1 EA IV SCH ×2 (07:41→15:13)
[2016-11-19] MEDS: KCL 20MEQ IN D5/0.45NS 1000ML 1,000 ML IV SCH ×2 (07:41→14:08)
[2016-11-19] MEDS: HEPARIN SOD (PORCINE) 5000 UNITS/ML VIAL SC SCH ×3 (07:41→21:01)
[2016-11-19] MEDS: ACETAMINOPHEN TAB 650MG DOSE (2X325MG) PO PRN (09:55)
[2016-11-19] MEDS: SENOKOT S TAB PO SCH ×2 (09:56→21:00)
[2016-11-19] MEDS: PANTOPRAZOLE 40MG TAB (PROTONIX) PO SCH (09:57)
[2016-11-19] MEDS: CIPROFLOXACIN 400 MG in APPROPRIATE DILUENT 1 EA IV SCH ×2 (09:57→21:01)
[2016-11-19] MEDS: NORCO, ANEXSIA 5/325MG TABLET (HYDROcodone/ACETAMINOPHEN) PO PRN ×2 (14:08→21:02)
[2016-11-19] MEDS: KETOROLAC 30 MG/ML VIAL (J1885) IV PRN (17:52)
--- NOTE | 2016-11-19 21:17 | ECGEPIP ---
Stationary ECG Study [facility] - ED Test Date: 2016-11-18 Pat Name: GARETH ALVAREZ Department: Room: [place] [address] Gender: F Portfolio Assistant: : 1955 Requested By: FELIBERTO Anguiano Order Number: [id number] Reading MD: Kelsie Dawson Measurements Intervals [employer] Rate: 71 P: 47 SD: 176 QRS: -2 QRSD: 89 T: 68 QT: 349 QTc: 380 Interpretive Statements SINUS RHYTHM NONSPECIFIC T-WAVE ABNORMALITY NO PRIOR FOR COMPARISON Electronically Signed On 11-19-2016 21:17:08 EST by Kelsie Dawson
[2016-11-20] MEDS: metroNIDAZOLE 500 MG in APPROPRIATE DILUENT 1 EA IV SCH ×2 (00:55→07:27)
[2016-11-20] MEDS: KCL 20MEQ IN D5/0.45NS 1000ML 1,000 ML IV SCH ×2 (00:55→07:27)
[2016-11-20 02:00] VITALS: BP 119/66
[2016-11-20 06:00] VITALS: BP 109/71
[2016-11-20] MEDS: HEPARIN SOD (PORCINE) 5000 UNITS/ML VIAL SC SCH ×3 (06:00→21:12)
[2016-11-20 06:39] LABS: MEAN CORPUSCULAR HEMOGLOBIN 30.7 pg (27.0-33.0); MEAN CORPUSCULAR HGB CONC 32.3 g/dl (32.0-36.5); MEAN CORPUSCULAR VOLUME 95.1 fl (80.0-96.0); RED CELL DISTRIBUTION WIDTH 13.2 % (11.5-14.5); WHITE BLOOD COUNT 14.6 K/mm3 (4.0-10.0)
[2016-11-20 06:51] LABS: ALBUMIN 2.6 GM/DL (3.2-5.2); ALBUMIN/GLOBULIN RATIO 0.67 (1.00-1.93); ALKALINE PHOSPHATASE 85 U/L (45-117); ALT/SGPT 21 U/L (12-78); ANION GAP 6 MEQ/L (8-16); AST/SGOT 16 U/L (15-37); BILIRUBIN,TOTAL 0.7 MG/DL (0.2-1.0); BLOOD UREA NITROGEN 8 MG/DL (7-18); CALCIUM LEVEL 8.2 MG/DL (8.5-10.1); CARBON DIOXIDE LEVEL 25 MEQ/L (21-32); CHLORIDE LEVEL 105 MEQ/L (98-107); CREATININE FOR GFR 0.73 MG/DL (0.55-1.02); GLOMERULAR FILTRATION RATE > 60.0 (>51); GLUCOSE, FASTING 95 MG/DL (70-105); POTASSIUM SERUM 4.1 MEQ/L (3.5-5.1); SODIUM LEVEL 136 MEQ/L (136-145); TOTAL PROTEIN 6.5 GM/DL (6.4-8.2)
[2016-11-20] MEDS ORDERED: FUROSEMIDE 40 MG TAB PO ONE (07:45)
[2016-11-20 08:22] VITALS: BP 128/84
[2016-11-20] MEDS: ACETAMINOPHEN TAB 650MG DOSE (2X325MG) PO PRN (09:30)
[2016-11-20] MEDS: CIPROFLOXACIN 400 MG in APPROPRIATE DILUENT 1 EA IV SCH (09:30)
[2016-11-20] MEDS: PANTOPRAZOLE 40MG TAB (PROTONIX) PO SCH (09:30)
[2016-11-20] MEDS: SENOKOT S TAB PO SCH ×2 (09:30→21:11)
[2016-11-20] MEDS ORDERED: METOCLOPRAMIDE INJ 10MG/2ML VIAL (J2765) IV PRN (10:45)
[2016-11-20] MEDS: PIPERACILLIN/TAZOBACTAM SOD 3.375 GM in D5W MINI-BAG PLUS 50 ML IV SCH ×2 (11:49→18:39)
[2016-11-20 14:20] VITALS: BP 121/66
[2016-11-20] MEDS: KETOROLAC 30 MG/ML VIAL (J1885) IV PRN (18:44)
[2016-11-20 22:00] VITALS: BP 109/67
--- NOTE | 2016-11-20 23:01 | EDDOCDS ---
Physician Documentation [facility] Name: Casandra Gilliland Age: 61 yrs Sex: Female : 1955 Arrival Date: 11/18/2016 Time: 17:36 Bed I1 / M1 Private MD: Warren Lundberg MD Disposition: 11/18/16 21:22 Hospitalization ordered by Derik Mazariegos for Inpatient Admission. Preliminary diagnosis is Acute appendicitis with localized peritonitis. - Bed requested for Admit. - Status is Inpatient Admission. cf2 - Condition is Stable. - Problem is new. - Symptoms are unchanged. Historical: - Allergies: Nickel (Rash); SULFA (SULFONAMIDES) (Rash); Latex (Rash); Augmentin (Rash); - Home Meds: 1. aspirin 81 mg Oral tab 1 tab once daily (Last dose: 11/18/2016 04:30) 2. tramadol 50 mg Oral tab 1 tab every 4-6 hours as needed (Last dose: Unknown) 3. Veramyst 27.5 mcg/actuation nasal spsn 2 sprays once daily as needed (Last dose: Unknown) 4. multivitamin Oral tab 1 tablet daily (Last dose: 11/18/2016 04:30) 5. Oyster Shell Calcium-Vit D3 500 mg(1,250mg) -200 unit Oral tab daily (Last dose: 11/18/2016 04:30) 6. fexofenadine 180 mg Oral tab 1 tab once daily as needed (Last dose: Unknown) 7. pravastatin 40 mg oral tab 2 tabs nightly (Last dose: 11/17/2016) 8. allergy injections every 3 weeks 9. Benicar 20 mg oral tab 1 tab once daily (Last dose: 11/18/2016 04:30) 10. amlodipine 5 mg Oral tab 1 tab once daily (Last dose: 11/18/2016 04:30) - PMHx: allergies; Hypertension; Hypercholesterolemia; back pain; - PSHx: Hysterectomy; Biopsy, Breast- Right; skin graft left ear; polyps removed from uterus; - Social history: Smoking status: Patient states former smoker of tobacco. No barriers to communication noted, The patient speaks fluent Lithuanian. - Family history: Not pertinent. - : The pt / caregiver states he / she is not on anticoagulants. Home medication list is obtained from the patient. - Exposure Risk Screening:: None identified. Vital Signs: 11/18 17:40 BP 158 / 88; Pulse 68; Resp 18; Temp 98.3; Pulse Ox 99% ; Weight 75.3 kg / 166.01 lbs; elp Height 4 ft. 11 in. (149.86 cm); 21:57 BP 130 / 79; Pulse 70; Resp 18; Temp 99.2(TE); Pulse Ox 96% on R/A; Pain 8/10; mdr 17:40 Body Mass Index 33.53 (75.30 kg, 149.86 cm) elp MDM: 18:33 NS 0.9% 1000 ml IV at bolus once ordered. mo1 18:33 Ondansetron 4 mg IVP once ordered. mo1 18:33 IV Saline Lock ordered. mo1 18:33 Undress patient appropriately for examination ordered. mo1 18:33 CT ABD & PELVIS: IV Contrast Only Ordered. EDMS 18:34 Basic Metabolic Profile Ordered. EDMS 18:34 CBC with Diff Ordered. EDMS 18:34 Lipase Ordered. EDMS 18:34 Liver Profile Ordered. EDMS 18:34 Urinalysis Ordered. EDMS 18:34 Urine Culture Ordered. EDMS 18:35 NOTHING BY MOUTH+DIET ordered. EDMS 18:58 Financial registration complete. gjb 19:03 [facility] Payment Agreement was scanned into [employer] and attached to record. gjb 19:39 morphine 4 mg IVP once ordered. mo1 19:39 Ondansetron 4 mg IVP once ordered. mo1 19:39 CBC with Diff Reviewed. mo1 19:40 Basic Metabolic Profile Reviewed. mo1 19:40 Lipase Reviewed. mo1 19:40 Liver Profile Reviewed. mo1 20:09 Urinalysis Reviewed. mo1 20:38 BED REQUEST+ADM ordered. EDMS 21:05 ECG WITH READING ER PHYS+CARDIAG ordered. EDMS 21:22 Admission Orders was scanned into [employer] and attached to record. ml3 11/19 07:57 REGULAR DIET ordered. EDMS 07:58 COMPLETE BLOOD COUNT Ordered. EDMS 07:58 BASIC METABOLIC PROFILE Ordered. EDMS 07:58 PATHOLOGY REQUEST FOR SERVICE Ordered. EDMS 08:01 Admission / Observation Status ordered. EDMS 12:05 T-Sheet-- Draft Copy was scanned into [employer] and attached to record. gb 12:05 Radiology Report was scanned into [employer] and attached to record. gb Administered Medications: 11/18 18:48 Drug: NS 0.9% 1000 ml [sodium chloride 0.9 % intravenous solution] Route: IV; Rate: kr3 bolus; Site: left hand; 18:48 Drug: Ondansetron 4 mg Route: IVP; Site: left hand; kr3 20:00 Drug: morphine 4 mg [morphine 4 mg/mL intravenous cartridge (1 mL)] Route: IVP; Site: cf2 left antecubital; 20:00 Drug: Ondansetron 4 mg Route: IVP; Site: left antecubital; cf2 Signatures: Dispatcher [employer] EDMS Gudelia Chou RN RN Yvonne Eduardo, Harjit Reg Cameron Jeong, Harbor Engineer Unit ml3 Jong Addison PA PA mo1 Larissa Mack Christina, RN RN cf2 Rossy Rodríguez RN kr3 The chart was reviewed and I authenticate all verbal orders and agree with the evaluation and treatment provided.Attachments: 19:03 [facility] Payment Agreement [email or web address] 21:22 Admission Orders ml3 11/19 12:05 T-Sheet-- Draft Copy Chart Complete MTDD
--- NOTE | 2016-11-20 23:01 | EDDOCDS ---
Physician Documentation [facility] Name: Casandra Gilliland Age: 61 yrs Sex: Female : 1955 Arrival Date: 11/18/2016 Time: 17:36 Bed I1 / M1 Private MD: Warren Lundberg MD Disposition: 11/18/16 21:22 Hospitalization ordered by Derik Mazariegos for Inpatient Admission. Preliminary diagnosis is Acute appendicitis with localized peritonitis. - Bed requested for Admit. - Status is Inpatient Admission. cf2 - Condition is Stable. - Problem is new. - Symptoms are unchanged. Historical: - Allergies: Nickel (Rash); SULFA (SULFONAMIDES) (Rash); Latex (Rash); Augmentin (Rash); - Home Meds: 1. aspirin 81 mg Oral tab 1 tab once daily (Last dose: 11/18/2016 04:30) 2. tramadol 50 mg Oral tab 1 tab every 4-6 hours as needed (Last dose: Unknown) 3. Veramyst 27.5 mcg/actuation nasal spsn 2 sprays once daily as needed (Last dose: Unknown) 4. multivitamin Oral tab 1 tablet daily (Last dose: 11/18/2016 04:30) 5. Oyster Shell Calcium-Vit D3 500 mg(1,250mg) -200 unit Oral tab daily (Last dose: 11/18/2016 04:30) 6. fexofenadine 180 mg Oral tab 1 tab once daily as needed (Last dose: Unknown) 7. pravastatin 40 mg oral tab 2 tabs nightly (Last dose: 11/17/2016) 8. allergy injections every 3 weeks 9. Benicar 20 mg oral tab 1 tab once daily (Last dose: 11/18/2016 04:30) 10. amlodipine 5 mg Oral tab 1 tab once daily (Last dose: 11/18/2016 04:30) - PMHx: allergies; Hypertension; Hypercholesterolemia; back pain; - PSHx: Hysterectomy; Biopsy, Breast- Right; skin graft left ear; polyps removed from uterus; - Social history: Smoking status: Patient states former smoker of tobacco. No barriers to communication noted, The patient speaks fluent Ukrainian. - Family history: Not pertinent. - : The pt / caregiver states he / she is not on anticoagulants. Home medication list is obtained from the patient. - Exposure Risk Screening:: None identified. Vital Signs: 11/18 17:40 BP 158 / 88; Pulse 68; Resp 18; Temp 98.3; Pulse Ox 99% ; Weight 75.3 kg / 166.01 lbs; elp Height 4 ft. 11 in. (149.86 cm); 21:57 BP 130 / 79; Pulse 70; Resp 18; Temp 99.2(TE); Pulse Ox 96% on R/A; Pain 8/10; mdr 17:40 Body Mass Index 33.53 (75.30 kg, 149.86 cm) elp MDM: 18:33 NS 0.9% 1000 ml IV at bolus once ordered. mo1 18:33 Ondansetron 4 mg IVP once ordered. mo1 18:33 IV Saline Lock ordered. mo1 18:33 Undress patient appropriately for examination ordered. mo1 18:33 CT ABD & PELVIS: IV Contrast Only Ordered. EDMS 18:34 Basic Metabolic Profile Ordered. EDMS 18:34 CBC with Diff Ordered. EDMS 18:34 Lipase Ordered. EDMS 18:34 Liver Profile Ordered. EDMS 18:34 Urinalysis Ordered. EDMS 18:34 Urine Culture Ordered. EDMS 18:35 NOTHING BY MOUTH+DIET ordered. EDMS 18:58 Financial registration complete. gjb 19:03 [facility] Payment Agreement was scanned into [employer] and attached to record. gjb 19:39 morphine 4 mg IVP once ordered. mo1 19:39 Ondansetron 4 mg IVP once ordered. mo1 19:39 CBC with Diff Reviewed. mo1 19:40 Basic Metabolic Profile Reviewed. mo1 19:40 Lipase Reviewed. mo1 19:40 Liver Profile Reviewed. mo1 20:09 Urinalysis Reviewed. mo1 20:38 BED REQUEST+ADM ordered. EDMS 21:05 ECG WITH READING ER PHYS+CARDIAG ordered. EDMS 21:22 Admission Orders was scanned into [employer] and attached to record. ml3 11/19 07:57 REGULAR DIET ordered. EDMS 07:58 COMPLETE BLOOD COUNT Ordered. EDMS 07:58 BASIC METABOLIC PROFILE Ordered. EDMS 07:58 PATHOLOGY REQUEST FOR SERVICE Ordered. EDMS 08:01 Admission / Observation Status ordered. EDMS 12:05 T-Sheet-- Draft Copy was scanned into [employer] and attached to record. gb 12:05 Radiology Report was scanned into [employer] and attached to record. gb Administered Medications: 11/18 18:48 Drug: NS 0.9% 1000 ml [sodium chloride 0.9 % intravenous solution] Route: IV; Rate: kr3 bolus; Site: left hand; 18:48 Drug: Ondansetron 4 mg Route: IVP; Site: left hand; kr3 20:00 Drug: morphine 4 mg [morphine 4 mg/mL intravenous cartridge (1 mL)] Route: IVP; Site: cf2 left antecubital; 20:00 Drug: Ondansetron 4 mg Route: IVP; Site: left antecubital; cf2 Signatures: Dispatcher [employer] EDMS Gudelia Chou RN RN Yvonne Eduardo, Harjit Reg Cameron Jeong, Stroke Program Coordinator Unit ml3 Jong Addison PA PA mo1 Larissa Mack Christina, RN RN cf2 Rossy Rodríguez RN kr3 The chart was reviewed and I authenticate all verbal orders and agree with the evaluation and treatment provided.Attachments: 19:03 [facility] Payment Agreement [email or web address] 21:22 Admission Orders ml3 11/19 12:05 T-Sheet-- Draft Copy Chart Complete MTDD
--- NOTE | 2016-11-20 23:01 | EDDOCDS ---
Nurse's Notes [facility] Name: Casandra Gilliland Age: 61 yrs Sex: Female : 1955 Arrival Date: 11/18/2016 Time: 17:36 Bed I1 / M1 Private MD: Warren Lundberg MD Diagnosis: Acute appendicitis with localized peritonitis Presentation: 11/18 17:48 Presenting complaint: Patient states: right flank and abdominal since 1030 this [facility] morning, seen at Urgent care , sent here for evaluation. Adult Sepsis Screening: The patient does not have new or worsening altered mentation. Patient's respiratory rate is less than 22. Systolic blood pressure is greater than 100. Patient has a qSOFA score of. Suicide/Homicide risk assessment- the patient denies having any suicidal and/or homicidal ideations and does not present with any other emotional, behavioral or mental health complaints. Status: Patient is not a customer service officer or dependent. Transition of care: Patient was received from [facility]. 17:48 Acuity: ANN-MARIE Level 3 [facility] 17:48 Method Of Arrival: Walkin/Carried/Asstd [facility] Triage Assessment: 17:57 General: Appears uncomfortable, Behavior is appropriate for age, pleasant. Pain: [facility] Location: right flank Pain currently is 9 out of 10 on a pain scale. Pain radiates to right lower quadrant. Pt Declines HIV testing. Neurological: Level of Consciousness is awake, alert, Oriented to person, place, time. Respiratory: Airway is patent Respiratory effort is even, unlabored, Respiratory pattern is regular, symmetrical. GI: Reports lower abdominal pain, nausea, Pain is 9 out of 10 on a pain scale. : Reports pain in right flank(s) Pain is 9 out of 10 on a pain scale. Derm: Skin is pink, warm & dry. Historical: - Allergies: Nickel (Rash); SULFA (SULFONAMIDES) (Rash); Latex (Rash); Augmentin (Rash); - Home Meds: 1. aspirin 81 mg Oral tab 1 tab once daily (Last dose: 11/18/2016 04:30) 2. tramadol 50 mg Oral tab 1 tab every 4-6 hours as needed (Last dose: Unknown) 3. Veramyst 27.5 mcg/actuation nasal spsn 2 sprays once daily as needed (Last dose: Unknown) 4. multivitamin Oral tab 1 tablet daily (Last dose: 11/18/2016 04:30) 5. Oyster Shell Calcium-Vit D3 500 mg(1,250mg) -200 unit Oral tab daily (Last dose: 11/18/2016 04:30) 6. fexofenadine 180 mg Oral tab 1 tab once daily as needed (Last dose: Unknown) 7. pravastatin 40 mg oral tab 2 tabs nightly (Last dose: 11/17/2016) 8. allergy injections every 3 weeks 9. Benicar 20 mg oral tab 1 tab once daily (Last dose: 11/18/2016 04:30) 10. amlodipine 5 mg Oral tab 1 tab once daily (Last dose: 11/18/2016 04:30) - PMHx: allergies; Hypertension; Hypercholesterolemia; back pain; - PSHx: Hysterectomy; Biopsy, Breast- Right; skin graft left ear; polyps removed from uterus; - Social history: Smoking status: Patient states former smoker of tobacco. No barriers to communication noted, The patient speaks fluent Bulgarian. - Family history: Not pertinent. - : The pt / caregiver states he / she is not on anticoagulants. Home medication list is obtained from the patient. - Exposure Risk Screening:: None identified. Screenin:50 Screening information is obtained from the patient. Fall risk: No risks identified. rs3 Assistance ADL's: requires no assistance with activities of daily living. Abuse/DV Screen: The patient / caregiver reports he/she is: not in a situation that causes fear, pain or injury. Nutritional screening: No deficits noted. Advance Directives: Currently, there is no health care proxy. There is no active DNR order. home support is adequate. Assessment: 18:49 General: Appears in no apparent distress, Behavior is appropriate for age, cooperative. rs3 Pain: Location: right lower quadrant. Neurological: Level of Consciousness is awake, alert, Oriented to person, place, time. Respiratory: Airway is patent Respiratory effort is even, unlabored. GI: Abdomen is non- distended Bowel sounds present X 4 quads. Abd is soft X 4 quads Abd is tender to palpation in suprapubic area and right lower quadrant. Derm: Skin is pink, warm & dry. 19:22 Adult Sepsis Screening: The patient does not have new or worsening altered mentation. dsf Patient's respiratory rate is less than 22. Systolic blood pressure is greater than 100. Patient has a qSOFA score of 0- Negative Sepsis Screen. General: Appears in no apparent distress, Behavior is appropriate for age, cooperative. Neurological: Level of Consciousness is awake, alert. Cardiovascular: Capillary refill < 3 seconds. Respiratory: Airway is patent Respiratory effort is even, unlabored, Respiratory pattern is regular, symmetrical. Derm: Skin is pink, warm & dry. 20:37 Reassessment: Patient resting more comfortably, PA over to speak with patient, cf2 +appendicitis . 21:59 General: Appears comfortable, Behavior is appropriate for age, cooperative. cf2 Vital Signs: 17:40 BP 158 / 88; Pulse 68; Resp 18; Temp 98.3; Pulse Ox 99% ; Weight 75.3 kg; Height 4 ft. elp 11 in. (149.86 cm); 21:57 BP 130 / 79; Pulse 70; Resp 18; Temp 99.2(TE); Pulse Ox 96% on R/A; Pain 8/10; mdr 17:40 Body Mass Index 33.53 (75.30 kg, 149.86 cm) [facility] Vitals: 17:40 Log In Time: November 18, 2016 at 17:38. [facility] ED Course: 17:37 Patient visited by Laurel Colon PCA. elp 17:37 Patient moved to Waiting elp 17:38 Warren Lundberg is Private Physician. elp 17:40 Patient visited by Laurel Colon PCA. elp 17:40 Patient moved to Pre RCE elp 17:49 Triage Initiated kpj 18:07 Patient moved to Triage 1 mdr 18:15 Jong Addison PA is PHCP. mo1 18:15 Milana Daniel MD is Attending Physician. mo1 18:28 Patient moved to I1 / M1 dsf 18:32 Patient visited by Jong Addison PA. mo1 18:48 Inserted saline lock: 22 gauge in left hand The patient tolerated the procedure well. kr3 18:48 Basic Metabolic Profile Sent. kr3 18:48 CBC with Diff Sent. kr3 18:48 Lipase Sent. kr3 18:48 Liver Profile Sent. kr3 18:51 No procedures done that require assistance. rs3 19:03 [facility] [place] Payment Agreement was scanned into [email or web address] and attached to record. gjb 19:14 Sammi Ortega,TAMI is Primary Nurse. cf2 19:14 Patient visited by Sammi Ortega RN. cf2 19:16 Patient visited by Sammi Ortega RN. cf2 19:22 Urinalysis Sent. dsf 19:22 Urine Culture Sent. dsf 19:23 Patient visited by Ely Hodges RN. dsf 20:04 Patient visited by Sammi Ortega RN. cf2 20:37 Patient visited by Sammi Ortega RN. cf2 20:37 The patient / caregiver is instructed regarding the plan of care and ED course. Patient cf2 has correct armband on for positive identification. Placed in gown. Bed in low position. Call light in reach. Side rails up X 1. Side rails up X2. Property :Personal belongings accompany Pt. Door closed. Noise minimized. Visitors limited. Lights dimmed. Moved to private room. Verbal reassurance given. Warm blanket given. Pillow given. Head of bed elevated. Diet: Patient is NPO. 21:12 CT ABD & PELVIS: IV Contrast Only Returned. EDMS 21:22 Patient visited by Sammi Ortega RN. cf2 21:22 Derik Mazariegos DO is Hospitalizing Provider. mo1 21:22 Admission Orders was scanned into [email or web address] and attached to record. ml3 21:34 EKG done. (by ED staff). Reviewed by Jong LUKE. mdr 21:35 Patient visited by Andres العراقي, PROFESSOR OF JOURNALISM. mdr 21:58 Patient visited by Andres العراقي, RUTH. mdr 11/19 12:05 T-Sheet-- Draft Copy was scanned into [email or web address] and attached to record. gb 12:05 Radiology Report was scanned into [email or web address] and attached to record. gb Administered Medications: 11/18 18:48 Drug: NS 0.9% 1000 ml [sodium chloride 0.9 % intravenous solution] Route: IV; Rate: kr3 bolus; Site: left hand; 18:48 Drug: Ondansetron 4 mg Route: IVP; Site: left hand; kr3 20:00 Drug: morphine 4 mg [morphine 4 mg/mL intravenous cartridge (1 mL)] Route: IVP; Site: cf2 left antecubital; 20:00 Drug: Ondansetron 4 mg Route: IVP; Site: left antecubital; cf2 Order Results: Lab Order: Basic Metabolic Profile; SPEC11/18/16 18:43 Test: GLUCOSE, FASTING; Value: 126; Range: 70-105; Abnormal: Above high normal; Units: MG/DL; Status: F Test: BLOOD UREA NITROGEN; Value: 13; Range: 7-18; Units: MG/DL; Status: F Test: CREATININE FOR GFR; Value: 0.81; Range: 0.55-1.02; Units: MG/DL; Status: F Test: GLOMERULAR FILTRATION RATE; Value: > 60.0; Range: >51; Status: F Test: SODIUM LEVEL; Value: 138; Range: 136-145; Units: MEQ/L; Status: F Test: POTASSIUM SERUM; Value: 4.6; Range: 3.5-5.1; Units: MEQ/L; Status: F Test: CHLORIDE LEVEL; Value: 102; Range: 98-107; Units: MEQ/L; Status: F Test: CARBON DIOXIDE LEVEL; Value: 26; Range: 21-32; Units: MEQ/L; Status: F Test: ANION GAP; Value: 10; Range: 8-16; Units: MEQ/L; Status: F Test: CALCIUM LEVEL; Value: 9.0; Range: 8.5-10.1; Units: MG/DL; Status: F Test Note: ; Units are mL/min/1.73 m2 Chronic Kidney Disease Staging per NKF: Stage I & II GFR >=60 Normal to Mildly Decreased Stage III GFR 30-59 Moderately Decreased Stage IV GFR 15-29 Severely Decreased Stage V GFR <15 Very Little GFR Left ESRD GFR <15 on SEMICONDUCTOR DEVELOPMENT TECHNICIAN Lab Order: CBC with Diff; 11/18/16 18:43 Test: WHITE BLOOD COUNT; Value: 15.6; Range: 4.0-10.0; Abnormal: Above high normal; Units: K/mm3; Status: F Test: RED BLOOD COUNT; Value: 4.81; Range: 4.00-5.40; Units: M/mm3; Status: F Test: HEMOGLOBIN; Value: 14.7; Range: 12.0-16.0; Units: g/dl; Status: F Test: HEMATOCRIT; Value: 44.1; Range: 36.0-47.0; Units: %; Status: F Test: MEAN CORPUSCULAR VOLUME; Value: 91.7; Range: 80.0-96.0; Units: fl; Status: F Test: MEAN CORPUSCULAR HEMOGLOBIN; Value: 30.7; Range: 27.0-33.0; Units: pg; Status: F Test: MEAN CORPUSCULAR HGB CONC; Value: 33.4; Range: 32.0-36.5; Units: g/dl; Status: F Test: RED CELL DISTRIBUTION WIDTH; Value: 13.3; Range: 11.5-14.5; Units: %; Status: F Test: PLATELET COUNT, AUTOMATED; Value: 207; Range: 150-450; Units: k/mm3; Status: F Test: NEUTROPHILS %; Value: 86.1; Range: 36.0-66.0; Abnormal: Above high normal; Units: %; Status: F Test: LYMPH %; Value: 6.4; Range: 24.0-44.0; Abnormal: Below low normal; Units: %; Status: F Test: MONO %; Value: 6.3; Range: 0.0-5.0; Abnormal: Above high normal; Units: %; Status: F Test: EOS %; Value: 0.5; Range: 0.0-3.0; Units: %; Status: F Test: BASO %; Value: 0.1; Range: 0.0-1.0; Units: %; Status: F Test: LARGE UNSTAINED CELL %; Value: 0.6; Range: 0.0-4.0; Units: %; Status: F Test: NEUTROPHILS #; Value: 13.4; Range: 1.8-7.7; Abnormal: Above high normal; Units: K/mm3; Status: F Test: LYMPH #; Value: 1.1; Range: 1.5-4.5; Abnormal: Below low normal; Units: K/mm3; Status: F Test: MONO #; Value: 1.0; Range: 0.0-0.8; Abnormal: Above high normal; Units: K/mm3; Status: F Test: EOS #; Value: 0.1; Range: 0.0-0.50; Units: K/mm3; Status: F Test: BASO #; Value: 0.0; Range: 0.0-0.2; Units: K/mm3; Status: F Test: LARGE UNSTAINED CELL #; Value: 0.1; Range: 0.0-0.4; Units: K/mm3; Status: F Lab Order: Lipase; [facility] 11/18/16 18:43 Test: LIPASE; Value: 131; Range: 73-393; Units: U/L; Status: F Lab Order: Liver Profile; [facility] 11/18/16 18:43 Test: AST/SGOT; Value: 27; Range: 15-37; Units: U/L; Status: F Test: ALT/SGPT; Value: 37; Range: 12-78; Units: U/L; Status: F Test: ALKALINE PHOSPHATASE; Value: 115; Range: 45-117; Units: U/L; Status: F Test: BILIRUBIN,TOTAL; Value: 0.7; Range: 0.2-1.0; Units: MG/DL; Status: F Test: BILIRUBIN,DIRECT; Value: 0.2; Range: 0.0-0.2; Units: MG/DL; Status: F Test: TOTAL PROTEIN; Value: 7.6; Range: 6.4-8.2; Units: GM/DL; Status: F Test: ALBUMIN; Value: 4.0; Range: 3.2-5.2; Units: GM/DL; Status: F Test: ALBUMIN/GLOBULIN RATIO; Value: 1.11; Range: 1.00-1.93; Status: F Lab Order: Urinalysis; [facility] 11/18/16 19:20 Test: APPEARANCE, URINE; Value: CLEAR; Range: CLEAR; Status: F Test: COLOR, URINE; Value: YELLOW; Range: YELLOW; Status: F Test: PH,URINE; Value: 7.0; Range: 5.0-9.0; Units: UNITS; Status: F Test: SPECIFIC GRAVITY URINE AUTO; Value: 1.020; Range: 1.002-1.035; Status: F Test: PROTEIN, URINE AUTO; Value: NEGATIVE; Range: NEGATIVE; Units: mg/dL; Status: F Test: GLUCOSE, URINE (UA) AUTO; Value: NEGATIVE; Range: NEGATIVE; Units: mg/dL; Status: F Test: KETONE, URINE AUTO; Value: 1+; Range: NEGATIVE; Abnormal: Above high normal; Units: mg/dL; Status: F Test: UROBILINOGEN, URINE AUTO; Value: 0.2; Range: 0.0-2.0; Units: mg/dL; Status: F Test: BILIRUBIN, URINE AUTO; Value: NEGATIVE; Range: NEGATIVE; Status: F Test: NITRITE, URINE AUTO; Value: NEGATIVE; Range: NEGATIVE; Status: F Test: LEUKOCYTE ESTERASE, URINE AUTO; Value: NEGATIVE; Range: NEGATIVE; Status: F Test: BLOOD, URINE BLOOD; Value: NEGATIVE; Range: NEGATIVE; Status: F Test: WBC, URINE AUTO; Value: 0; Range: 0-3; Units: /HPF; Status: F Test: RBC, URINE AUTO; Value: 2; Range: 0-3; Units: /HPF; Status: F Test: BACTERIA, URINE AUTO; Value: NEGATIVE; Range: NEGATIVE; Status: F Test: SQUAMOUS EPITHELIAL CELL UR AU; Value: 0; Range: 0-6; Units: /HPF; Status: F Test: MUCUS, URINE; Value: SMALL; Range: NEGATIVE; Status: F Test: HYALINE CAST, URINE AUTO; Value: 0; Range: 0-1; Units: /LPF; Status: F Lab Order: COMPLETE BLOOD COUNT; SPEC'M 11/19/16 06:59 Test: WHITE BLOOD COUNT; Value: 9.1; Range: 4.0-10.0; Units: K/mm3; Status: F Test: RED BLOOD COUNT; Value: 4.01; Range: 4.00-5.40; Units: M/mm3; Status: F Test: HEMOGLOBIN; Value: 12.4; Range: 12.0-16.0; Abnormal: Delta; Units: g/dl; Status: F Test: HEMATOCRIT; Value: 37.4; Range: 36.0-47.0; Units: %; Status: F Test: MEAN CORPUSCULAR VOLUME; Value: 93.2; Range: 80.0-96.0; Units: fl; Status: F Test: MEAN CORPUSCULAR HEMOGLOBIN; Value: 30.9; Range: 27.0-33.0; Units: pg; Status: F Test: MEAN CORPUSCULAR HGB CONC; Value: 33.1; Range: 32.0-36.5; Units: g/dl; Status: F Test: RED CELL DISTRIBUTION WIDTH; Value: 13.4; Range: 11.5-14.5; Units: %; Status: F Test: PLATELET COUNT, AUTOMATED; Value: 146; Range: 150-450; Abnormal: Below low normal; Units: k/mm3; Status: F Lab Order: BASIC METABOLIC PROFILE; [facility]59 Test: GLUCOSE, FASTING; Value: 120; Range: 70-105; Abnormal: Above high normal; Units: MG/DL; Status: F Test: BLOOD UREA NITROGEN; Value: 9; Range: 7-18; Units: MG/DL; Status: F Test: CREATININE FOR GFR; Value: 0.85; Range: 0.55-1.02; Units: MG/DL; Status: F Test: GLOMERULAR FILTRATION RATE; Value: > 60.0; Range: >51; Status: F Test: SODIUM LEVEL; Value: 138; Range: 136-145; Units: MEQ/L; Status: F Test: POTASSIUM SERUM; Value: 4.7; Range: 3.5-5.1; Units: MEQ/L; Status: F Test: CHLORIDE LEVEL; Value: 103; Range: 98-107; Units: MEQ/L; Status: F Test: CARBON DIOXIDE LEVEL; Value: 26; Range: 21-32; Units: MEQ/L; Status: F Test: ANION GAP; Value: 9; Range: 8-16; Units: MEQ/L; Status: F Test: CALCIUM LEVEL; Value: 8.0; Range: 8.5-10.1; Abnormal: Below low normal; Units: MG/DL; Status: F Test Note: ; Units are mL/min/1.73 m2 Chronic Kidney Disease Staging per NKF: Stage I & II GFR >=60 Normal to Mildly Decreased Stage III GFR 30-59 Moderately Decreased Stage IV GFR 15-29 Severely Decreased Stage V GFR <15 Very Little GFR Left ESRD GFR <15 on SEMICONDUCTOR DEVELOPMENT TECHNICIAN Radiology Order: CT ABD & PELVIS: IV Contrast Only Test: CT ABD & PELVIS: IV Contrast Only REASON FOR EXAMINATION: lower abd pain, worse on right; ; CT of the abdomen and pelvis with contrast; Clinical statement: Pain.; Technique: Multiple axial CT images were obtained from the base of the lungs through the floor of the; pelvis utilizing 5 mm axial slices after administration of nonionic intravenous contrast. Coronal an; d sagittal reconstructions were also obtained.; No comparison is available.; Findings:; Chest: The visualized lung bases are clear.; Abdomen: The liver, spleen, pancreas, kidneys, gallbladder, and adrenal glands are unremarkable. The; aorta is within normal limits. There is no evidence of abdominal lymphadenopathy or ascites.; Pelvis: The appendix is significantly thickened and inflamed, measuring 17 mm in diameter. Surroundin; g inflammatory stranding is noted, but no surrounding free fluid is seen. There is no evidence of per; foration or abscess. The remainder of the bowel is unremarkable. The urinary bladder is within normal; limits. The other pelvic structures appear grossly intact. There is no evidence of pelvic lymphadeno; gen. There is a small amount of free fluid in the cul-de-sac.; Bones: There are no suspicious osseous abnormalities seen.; Impression: Acute appendicitis as described. ER physician was notified of these findings at 8:35 PM o; n 11/18/2016.; ; Outcome: 21:22 Decision to Hospitalize by Provider. mo1 21:59 Discharge Assessment: Patient awake, alert and oriented x 3. No cognitive and/or cf2 functional deficits noted. Patient verbalized understanding of disposition instructions. Patient awake and alert. Oriented to person, place and time. patient administered narcotics - yes. The following High Risk Discharge criteria are identified: None. Admitted to OR. Condition: good Condition: stable. CT Study completed. 22:00 Patient left the ED. cf2 Signatures: Dispatcher [employer] EDMS Gudelia Chou RN RN Yvonne Eduardo, Reg Reg Cameron Jeong, Machine Rebuilder Unit ml3 Rossy RodríguezRN RN Roslyn Kapoor RN RN rs3 Ely HodgesRN RN dsf Jong Addison PA PA mo1 Isaiah, Laurel, PROFESSOR OF JOURNALISM PROFESSOR OF JOURNALISM andreasp Andres العراقي, PROFESSOR OF JOURNALISM PROFESSOR OF JOURNALISM Larissa Cha Christina,RN RN cf2 Chart Complete MTDD
[2016-11-21] MEDS: PIPERACILLIN/TAZOBACTAM SOD 3.375 GM in D5W MINI-BAG PLUS 50 ML IV SCH ×2 (03:38→10:03)
[2016-11-21] MEDS: HEPARIN SOD (PORCINE) 5000 UNITS/ML VIAL SC SCH (05:22)
[2016-11-21 06:00] VITALS: BP 118/71
[2016-11-21 06:33] LABS: MEAN CORPUSCULAR HEMOGLOBIN 31.4 pg (27.0-33.0); MEAN CORPUSCULAR VOLUME 92.4 fl (80.0-96.0)
[2016-11-21 07:02] LABS: ALBUMIN 2.2 GM/DL (3.2-5.2); ALBUMIN/GLOBULIN RATIO 0.58 (1.00-1.93); ALKALINE PHOSPHATASE 80 U/L (45-117); ALT/SGPT 16 U/L (12-78); ANION GAP 8 MEQ/L (8-16); AST/SGOT 13 U/L (15-37); BILIRUBIN,TOTAL 0.6 MG/DL (0.2-1.0); BLOOD UREA NITROGEN 7 MG/DL (7-18); CALCIUM LEVEL 8.1 MG/DL (8.5-10.1); CARBON DIOXIDE LEVEL 27 MEQ/L (21-32); CHLORIDE LEVEL 106 MEQ/L (98-107); CREATININE FOR GFR 0.73 MG/DL (0.55-1.02); GLOMERULAR FILTRATION RATE > 60.0 (>51); GLUCOSE, FASTING 96 MG/DL (70-105); POTASSIUM SERUM 3.6 MEQ/L (3.5-5.1); SODIUM LEVEL 141 MEQ/L (136-145)
[2016-11-21] MEDS: KETOROLAC 30 MG/ML VIAL (J1885) IV PRN (09:12)
[2016-11-21] MEDS: PANTOPRAZOLE 40MG TAB (PROTONIX) PO SCH (09:12)
[2016-11-21] MEDS: SENOKOT S TAB PO SCH (09:12)
== END 2016-11-21 12:45 | disposition home or self-care (01) | DRG 225 ==
LOC: M ED 17:36 → M SDC 21:15 → M MSPAV 11-19 01:28 → M SDC 11-19 06:56 → M ED INP 11-19 06:56 → M MSPAV 11-19 08:12
PROVIDERS: ADMIT Surgery; ATTEND Surgery
PROC: 0DTJ4ZZ Resection of Appendix, Percutaneous Endoscopic Approach (ICD-10-PCS; principal; 2016-11-18 22:23)
DX: K35.80 Unspecified acute appendicitis (principal); I10 Essential (primary) hypertension; E78.5 Hyperlipidemia, unspecified; Z88.0 Allergy status to penicillin; Z88.2 Allergy status to sulfonamides

== ENCOUNTER → 2016-11-18 | Outpatient (REF) | payer BC ==
[~2016-11-18] MED LIST: ACET50TAOT PO; AMLO5TAB2 PO; ASPI81CH PO; BENI20TA5 PO; CALC1TAB30 PO; CIPR500T89 PO; FEXO180T58 PO; FLAG500T PO; NORC5TAB PO; PARO-39 PO; SENN1TAB2 PO; SIMV40TA2 PO; VERA27.5; VITMTA PO
== END ==
LOC: M LAB REF 09:05
PROVIDERS: ATTEND Physician Assistant
DX: R10.813 Right lower quadrant abdominal tenderness (principal)

== ENCOUNTER → 2016-12-29 | Outpatient (CLI) | payer BC ==
[~2016-12-29] VITALS: Ht 147.3 cm; Wt 72.6 kg
[~2016-12-29] MED LIST changes: +GLYCOPYRROLATE INJ 0.2 MG/ML 2 ML VIAL As Ordered ONE; +LIDOCAINE 2% INJ 100 MG/5 ML SDV (FOR ANES.) As Ordered ONE; +NS 1,000 ML IV SCH; +PROPOFOL 200 MG/20 ML VIAL As Ordered ONE
--- NOTE | 2016-12-29 08:35 | ROOR ---
Patient Name: Casandra Gilliland Procedure Date: 12/29/2016 8:01 AM Date of : 1955 Age: 61 Room: [facility] Gender: Female Note Status: Finalized Procedure: Colonoscopy Indications: Screening for colorectal malignant neoplasm Providers: Derik Mazariegos DO Referring MD: KATHERINE PERSON DO Requesting Provider: Medicines: Propofol per Anesthesia Complications: No immediate complications. Procedure: Pre-Anesthesia Assessment: - Prior to the procedure, a History and Physical was performed, and patient medications and allergies were reviewed. The patient is competent. The risks and benefits of the procedure and the sedation options and risks were discussed with the patient. All questions were answered and informed consent was obtained. Patient identification and proposed procedure were verified by the physician, the nurse, the anesthesiologist and the experimental technician in the endoscopy suite. Mental Status Examination: alert and oriented. Airway Examination: normal oropharyngeal airway and neck mobility. Respiratory Examination: clear to auscultation. CV Examination: normal. Prophylactic Antibiotics: The patient does not require prophylactic antibiotics. Prior Anticoagulants: The patient has taken no previous anticoagulant or antiplatelet agents. ASA Grade Assessment: II - A patient with mild systemic disease. After reviewing the risks and benefits, the patient was deemed in satisfactory condition to undergo the procedure. The anesthesia plan was to use monitored anesthesia care (MAC). Immediately prior to administration of medications, the patient was re-assessed for adequacy to receive sedatives. The heart rate, respiratory rate, oxygen saturations, blood pressure, adequacy of pulmonary ventilation, and response to care were monitored throughout the procedure. The physical status of the patient was re-assessed after the procedure. The Colonoscope was introduced through the anus and advanced to the cecum, identified by the appendiceal orifice, ileocecal valve and palpation. The colonoscopy was performed without difficulty. The patient tolerated the procedure well. Findings: Multiple small and large-mouthed diverticula were found in the sigmoid colon. The exam was otherwise without abnormality on direct and retroflexion views. Impression: - Diverticulosis in the sigmoid colon. - The examination was otherwise normal on direct and retroflexion views. - No specimens collected. Recommendation: - Patient has a contact number available for emergencies. The signs and symptoms of potential delayed complications were discussed with the patient. Return to normal activities tomorrow. Written discharge instructions were provided to the patient. - Repeat colonoscopy in 5-10 years for screening purposes. - Return to my office PRN. Derik Mazariegos DO 12/29/2016 8:35:16 AM This report has been signed electronically. Number of Addenda: 0 Note Initiated On: 12/29/2016 8:01 AM Estimated Blood Loss: Estimated blood loss: none.
[2016-12-29 08:55] VITALS: BP 147/87
== END | disposition home or self-care (01) ==
LOC: M OPP 06:52
PROVIDERS: ATTEND Surgery
DX: Z12.11 Encounter for screening for malignant neoplasm of colon (principal); K57.30 Diverticulosis of large intestine without perforation or abscess without bleeding; I10 Essential (primary) hypertension; E78.5 Hyperlipidemia, unspecified; M19.90 Unspecified osteoarthritis, unspecified site; Z91.040 Latex allergy status; Z88.2 Allergy status to sulfonamides; Z79.82 Long term (current) use of aspirin; Z79.899 Other long term (current) drug therapy
CPT/HCPCS: 99156; 99157; G0121

== ENCOUNTER → 2017-11-14 | Outpatient (CLI) | payer OTHER | LOC: M WHC 08:18 | DX: Z12.31 Encounter for screening mammogram for malignant neoplasm of breast (principal) ==

== ENCOUNTER → 2018-03-14 | Outpatient (CLI) | payer OTHER ==
[2018-03-14 20:15] LABS: COMPLEMENT C3 162 MG/DL (90-180); COMPLEMENT C4 37.6 MG/DL (10-40); IMMUNOGLOBULIN E 71.4 IU/ML (<100); IMMUNOGLOBULIN G 963 MG/DL (681-1648); IMMUNOGLOBULIN M 64.3 MG/DL (40-230)
[2018-03-18 00:09] LABS: D001-IgE D pteronyssinus <0.10 kU/L (Class 0); E005-IgE Dog Dander < 0.10 kU/L (Class 0); F002-IgE Milk < 0.10 kU/L (Class 0); F004-IgE Wheat < 0.10 kU/L (Class 0); F013-IgE Peanut < 0.10 kU/L (Class 0); F014-IgE Soybean < 0.10 kU/L (Class 0); F026-IgE Pork < 0.10 kU/L (Class 0); F027-IgE Beef < 0.10 kU/L (Class 0); F245-IgE Egg, Whole < 0.10 kU/L (Class 0); FX02-IgE Food Mix (Sea Foods) Negative (.); G002-IgE Bermuda Grass 0.36 kU/L (Class I); G008-IgE Kentucky Bluegrass 3.81 kU/L (Class III); M001-IgE Penicillium chrysogen < 0.10 kU/L (Class 0); M002 IgE Cladosporium herbaru < 0.10 kU/L (Class 0); M003 IgE Aspergillus fumigatu < 0.10 kU/L (Class 0); M006-IgE Alternaria alternata < 0.10 kU/L (Class 0); T001-IgE Maple/Box Elder < 0.10 kU/L (Class 0); T003-IgE Common Silver Birch < 0.10 kU/L (Class 0); T006-IgE Cedar, Mountain < 0.10 kU/L (Class 0); T007-IgE Oak, White < 0.10 kU/L (Class 0); T008-IgE Elm, American < 0.10 kU/L (Class 0); T015-IgE Ash, White < 0.10 kU/L (Class 0); T041-IgE Hickory, White < 0.10 kU/L (Class 0); T070-IgE White Mulberry < 0.10 kU/L (Class 0); W001-IgE Ragweed, Short < 0.10 kU/L (Class 0); W009-IgE Plantain, English < 0.10 kU/L (Class 0); W014-IgE Pigweed, Rough < 0.10 kU/L (Class 0); W018-IgE Sheep Sorrel < 0.10 kU/L (Class 0)
[2018-03-18 00:09] LABS: ALPHA 1 ANTITRYPSIN 136 mg/dL (90-200)
== END ==
LOC: M WUC 16:47
DX: J30.1 Allergic rhinitis due to pollen (principal); J30.89 Other allergic rhinitis; J30.81 Allergic rhinitis due to animal (cat) (dog) hair and dander
CPT/HCPCS: 82785

== ENCOUNTER → 2018-05-13 | Outpatient (REF) | payer OTHER | LOC: M LAB REF 10:27 | DX: R30.0 Dysuria (principal) ==

== ENCOUNTER → 2019-01-02 | Outpatient (CLI) | payer BC ==
[~2019-01-02] MED LIST changes: +ACET500T15 PO; -ACET50TAOT PO; -AMLO5TAB2 PO; +AMLO5TAB6 PO; +BENI1TAB3 PO; -BENI20TA5 PO; +CIPR-249 PO; -CIPR500T89 PO; -GLYCOPYRROLATE INJ 0.2 MG/ML 2 ML VIAL As Ordered ONE; -LIDOCAINE 2% INJ 100 MG/5 ML SDV (FOR ANES.) As Ordered ONE; +NORC1TAB4 PO; -NORC5TAB PO; -NS 1,000 ML IV SCH; -PARO-39 PO; +PARO20TA4 PO; -PROPOFOL 200 MG/20 ML VIAL As Ordered ONE
--- NOTE | 2019-01-02 12:33 | REPMRS ---
Patient History The patient states she had a clinical breast exam in 12/2018. Patient is postmenopausal. Family history of prostate cancer at age 50 or over in maternal uncle, breast cancer in maternal aunt, breast cancer in paternal aunt. Benign ultrasound-guided FNA biopsy of the right breast, July 19, 2007. Taking estrogen for 9 years. 3D TOMOSYNTHESIS WAS PERFORMED. Digital Woman Screen Mammo: January 02, 2019 - Exam #: [id number] Bilateral CC and MLO view(s) were taken. Technologist: Sophie Roberts, Technologist Prior study comparison: November 14, 2017, digital woman screen mammo performed at [facility] Ens[facility] to Ensyn. November 12, 2016, digital woman screen mammo performed at [facility] Ens[facility] to Ensyn. FINDINGS: There are scattered fibroglandular densities. There has been no change in the appearance of the mammogram from the prior studies. There is a mild amount of residual fibroglandular tissue which is fairly symmetric. There is no interval development of dominant mass, architectural distortion, or clustered microcalcification suggestive of malignancy. Assessment: BI-RADS/ACR category 1 mammogram. Negative Mammogram. Recommendation Routine screening mammogram in 1 year (for women over age 40). This mammogram was interpreted with the aid of an FDA-approved computer-aided dectection system. Electronically Signed By: Derik Henriquez MD 01/02/19 [id number]
== END ==
LOC: M WHC 10:55
PROVIDERS: ATTEND Nurse Practitioner Family
DX: Z12.31 Encounter for screening mammogram for malignant neoplasm of breast (principal)

== ENCOUNTER → 2020-03-19 | Outpatient (CLI) | payer BC ==
[~2020-03-19] MED LIST changes: -ASPI81CH PO; +ASPI81CH49 PO; -NORC1TAB4 PO; +NORC1TAB7 PO; +SENN-53 PO; -SENN1TAB2 PO; -SIMV40TA2 PO; +SIMV40TA20 PO
[2020-03-22 06:09] LABS: D001-IgE D pteronyssinus <0.10 kU/L (Class 0); E001-IgE Cat Epith/Dander 0.33 kU/L (Class I); E003-IGE HORSE EPITHELIA/DAND <0.10 kU/L (Class 0); E004-IGE COW DANDER <0.10 kU/L (Class 0); E005-IgE Dog Dander < 0.10 kU/L (Class 0); F002-IgE Milk < 0.10 kU/L (Class 0); F004-IgE Wheat < 0.10 kU/L (Class 0); F013-IgE Peanut < 0.10 kU/L (Class 0); F014-IgE Soybean < 0.10 kU/L (Class 0); F026-IgE Pork < 0.10 kU/L (Class 0); F027-IgE Beef < 0.10 kU/L (Class 0); F245-IgE Egg, Whole < 0.10 kU/L (Class 0); FX02-IgE Food Mix (Sea Foods) Negative (.); G002-IgE Bermuda Grass 0.17 kU/L (Class 0/I); G008-IgE Kentucky Bluegrass 2.96 kU/L (Class III); M001-IgE Penicillium chrysogen < 0.10 kU/L (Class 0); M002 IgE Cladosporium herbaru < 0.10 kU/L (Class 0); M003 IgE Aspergillus fumigatu < 0.10 kU/L (Class 0); M006-IgE Alternaria alternata < 0.10 kU/L (Class 0); T001-IgE Maple/Box Elder < 0.10 kU/L (Class 0); T003-IgE Common Silver Birch < 0.10 kU/L (Class 0); T006-IgE Cedar, Mountain < 0.10 kU/L (Class 0); T007-IgE Oak, White < 0.10 kU/L (Class 0); T008-IgE Elm, American < 0.10 kU/L (Class 0); T015-IgE Ash, White < 0.10 kU/L (Class 0); T041-IgE Hickory, White < 0.10 kU/L (Class 0); T070-IgE White Mulberry < 0.10 kU/L (Class 0); W001-IgE Ragweed, Short < 0.10 kU/L (Class 0); W009-IgE Plantain, English < 0.10 kU/L (Class 0); W014-IgE Pigweed, Rough < 0.10 kU/L (Class 0); W018-IgE Sheep Sorrel < 0.10 kU/L (Class 0)
== END ==
LOC: M WUC 09:34
PROVIDERS: ATTEND Allergy & Immunology
DX: J30.1 Allergic rhinitis due to pollen (principal); J30.81 Allergic rhinitis due to animal (cat) (dog) hair and dander; J30.89 Other allergic rhinitis

== ENCOUNTER → 2020-04-24 | Outpatient (CLI) | payer BC ==
[~2020-04-24] MED LIST changes: +AMLO1TAB24 PO; -AMLO5TAB6 PO
--- NOTE | 2020-04-24 16:39 | REPMRS ---
Patient History The patient states she had a clinical breast exam in April 2020. Family history of prostate cancer at age 50 or over in maternal uncle, breast cancer in maternal aunt, breast cancer in paternal aunt. Benign ultrasound-guided FNA biopsy of the right breast, July 19, 2007. Taking estrogen for 9 years. 3D TOMOSYNTHESIS WAS PERFORMED. The [facility] lifetime risk for breast cancer is 12.7%. VOLPARA DENSITY A. Digital Woman Screen Mammo: April 24, 2020 - Exam #: [id number] Bilateral CC and MLO view(s) were taken. Technologist: Bhakti Anthony, Technologist Prior study comparison: January 02, 2019, bilateral digital woman screen mammo performed at [facility]. November 14, 2017, digital woman screen mammo performed at [facility]. FINDINGS: There are scattered fibroglandular densities. There has been no change in the appearance of the mammogram from the prior studies. There is a mild amount of residual fibroglandular tissue which is fairly symmetric. There is no interval development of dominant mass, architectural distortion, or clustered microcalcification suggestive of malignancy. Assessment: BI-RADS/ACR category 1 mammogram. Negative Mammogram. Recommendation Routine screening mammogram in 1 year (for women over age 40). This mammogram was interpreted with the aid of an FDA-approved computer-aided dectection system. Electronically Signed By: Derik Henriquez MD 04/24/20 [id number]
== END ==
LOC: M WHC 14:28
PROVIDERS: ATTEND Nurse Practitioner Family
DX: Z12.31 Encounter for screening mammogram for malignant neoplasm of breast (principal)

== ENCOUNTER → 2020-06-08 | Outpatient (CLI) | payer BC | LOC: M LABSMTC 08:21 | PROVIDERS: ATTEND Anesthesiology | DX: Z01.812 Encounter for preprocedural laboratory examination (principal); Z20.828 Contact with and (suspected) exposure to other viral communicable diseases | CPT/HCPCS: C9803; U0003 ==

== ENCOUNTER 2020-06-13 09:00 | Day surgery (SDC) | payer BC ==
[~2020-06-13] VITALS: Ht 144.8 cm; Wt 78.5 kg
[~2020-06-13 09:00] MED LIST changes: +LIDOCAINE 2% 100MG/5ML SDV (FOR ANES.) As Ordered ONE; +NS 1,000 ML IV ONE; +propofoL 200 MG/20 ML VIAL As Ordered ONE
[2020-06-13] MEDS ORDERED: fentaNYL 100 MCG/2 ML INJECTION (J3010) As Ordered ONE (12:38)
[2020-06-13 13:15] VITALS: BP 158/75
--- NOTE | 2020-06-18 11:38 | ROOR ---
Patient Name: Casandra Gilliland Procedure Date: 06/13/2020 12:32 PM Date of : 1955 Age: 64 Room: [facility] Gender: Female Note Status: Finalized Procedure: Upper GI endoscopy Indications: Dysphagia, Heartburn Providers: Lul Frausto MD Referring MD: KATHERINE PERSON DO Requesting Provider: Medicines: Monitored Anesthesia Care Complications: No immediate complications. Procedure: Pre-Anesthesia Assessment: - Prior to the procedure, a History and Physical was performed, and patient medications and allergies were reviewed. The patient is competent. The risks and benefits of the procedure and the sedation options and risks were discussed with the patient. All questions were answered and informed consent was obtained. Patient identification and proposed procedure were verified by the physician, the nurse and the anesthesiologist in the procedure room. Mental Status Examination: alert and oriented. Airway Examination: normal oropharyngeal airway and neck mobility. Respiratory Examination: clear to auscultation. CV Examination: normal. Prophylactic Antibiotics: The patient does not require prophylactic antibiotics. Prior Anticoagulants: The patient has taken no previous anticoagulant or antiplatelet agents. ASA Grade Assessment: II - A patient with mild systemic disease. After reviewing the risks and benefits, the patient was deemed in satisfactory condition to undergo the procedure. The anesthesia plan was to use monitored anesthesia care (MAC). Immediately prior to administration of medications, the patient was re-assessed for adequacy to receive sedatives. The heart rate, respiratory rate, oxygen saturations, blood pressure, adequacy of pulmonary ventilation, and response to care were monitored throughout the procedure. The physical status of the patient was re-assessed after the procedure. The Endoscope was introduced through the mouth, and advanced to the second part of duodenum. The upper GI endoscopy was accomplished without difficulty. The patient tolerated the procedure well. Findings: The examined esophagus was normal. Biopsies were obtained from the proximal and distal esophagus with cold forceps for histology of suspected eosinophilic esophagitis. Verification of patient identification for the specimen was done by the physician and nurse using the patient's name, date and medical record number. Estimated blood loss was minimal. The Z-line was regular and was found 37 cm from the incisors. Scattered mild inflammation characterized by erythema and granularity was found in the gastric antrum. Biopsies were taken with a cold forceps for Helicobacter pylori testing. The duodenal bulb and second portion of the duodenum were normal. Impression: - Normal esophagus. Biopsied. - Z-line regular, 37 cm from the incisors. - Gastritis. Biopsied. - Normal duodenal bulb and second portion of the duodenum. Recommendation: - Patient has a contact number available for emergencies. The signs and symptoms of potential delayed complications were discussed with the patient. Return to normal activities tomorrow. Written discharge instructions were provided to the patient. - High fiber diet. - Continue present medications. - Await pathology results. - Follow an antireflux regimen. - Await pathology results. - Telephone GI clinic for pathology results in 2 weeks. - Return to primary care physician. Lul Frausto MD Lul Frausto MD 06/13/2020 12:58:07 PM Electronically signed by Lul Frausto MD Number of Addenda: 0 Note Initiated On: 06/13/2020 12:32 PM Estimated Blood Loss: Estimated blood loss was minimal.
== END 2020-06-13 13:25 | disposition home or self-care (01) ==
LOC: M OPP 09:00
PROVIDERS: ATTEND Internal Medicine Gastroenterology
DX: K29.60 Other gastritis without bleeding (principal); K31.9 Disease of stomach and duodenum, unspecified; K20.0 Eosinophilic esophagitis; K21.9 Gastro-esophageal reflux disease without esophagitis; I10 Essential (primary) hypertension; Z79.899 Other long term (current) drug therapy; Z88.1 Allergy status to other antibiotic agents; Z88.2 Allergy status to sulfonamides
CPT/HCPCS: 43239; 88305; J3010

== ENCOUNTER → 2021-05-06 | Outpatient (CLI) | payer BC ==
[~2021-05-06] MED LIST changes: -LIDOCAINE 2% 100MG/5ML SDV (FOR ANES.) As Ordered ONE; -NS 1,000 ML IV ONE; -propofoL 200 MG/20 ML VIAL As Ordered ONE
--- NOTE | 2021-05-06 16:06 | REPMRS ---
Patient History The patient states she had a clinical breast exam in April 2021. Patient is postmenopausal. Family history of prostate cancer at age 50 or over in maternal uncle, breast cancer in maternal aunt, breast cancer in paternal aunt. Benign ultrasound-guided FNA biopsy of the right breast, July 19, 2007. Took estrogen for 9 years. No breast complaints today Patient signed the MRS sheet No covid vaccine Patient states she has lost at least 15lbs, intentionally since her last mammo [facility] on PACS Patient Identification Verified Digital Woman Screen Mammo: May 06, 2021 - Exam #: [id number] Bilateral CC and MLO view(s) were taken. Technologist: Maxine Olson, Technologist Prior study comparison: April 24, 2020, bilateral digital woman screen mammo performed at [facility]. January 02, 2019, bilateral digital woman screen mammo performed at [facility]. FINDINGS: The breast tissue is almost entirely fat. Screening. Digital screening (2D) mammography was performed bilaterally in the CC and MLO projections. Additionally, breast tomosynthesis (3D mammography) was performed bilaterally in the CC and MLO projections. Todays exam was compared to the prior exam/exams. By history, the patient has no complaints of a palpable breast abnormality or other significant breast complaints. The breasts are unchanged in size and shape. There are no home-soft tissue densities or spiculated masses. There is no internal architectural distortion.Once again, stable benign appearing calcifications are seen. There are no suspicious home-calcific clusters. Skin thickening or nipple retraction is not present. IMPRESSION: BI-RADS Category 2- Benign Findings. There is no evidence of malignant alteration of the breasts. Followup examination recommended in one year. The Volpara volumetric breast density category is A, the breasts are almost entirely fatty. This mammogram was read with the assistance of [employer],an FDA approved computer aided detection system for mammography. The lifetime Tyrer-Cuzick score is 12.2 % Negative x-ray reports should not delay surgical consultation if a dominant or clinically suspicious mass is present. Not all breast cancers can be identified by mammography. Therefore, we recommend that you continue to perform regular breast self-examination and physical examination and then promptly contact your physician of any concerns or changes. Adenosis and dense breasts may obscure an underlying neoplasm. Assessment: BI-RADS/ACR category 2 mammogram. Benign Findings. Recommendation Routine screening mammogram of both breasts in 1 year. Electronically Signed By: Murtaza Tran DO 05/06/21 [id number]
== END ==
LOC: M WHC 13:54
PROVIDERS: ATTEND Advanced Practice Midwife
DX: Z12.31 Encounter for screening mammogram for malignant neoplasm of breast (principal)

== ENCOUNTER → 2022-03-27 | Outpatient (CLI) | payer OTHER ==
[~2022-03-27] MED LIST changes: +FEXO-117 PO; -FEXO180T58 PO
[2022-03-27 09:50] LABS: IMMUNOGLOBULIN M 52.1 MG/DL (40-230)
== END ==
LOC: M LAB 08:39
PROVIDERS: ATTEND Nurse Practitioner Family
DX: J30.1 Allergic rhinitis due to pollen (principal); J30.81 Allergic rhinitis due to animal (cat) (dog) hair and dander; J30.89 Other allergic rhinitis; J45.20 Mild intermittent asthma, uncomplicated

== ENCOUNTER → 2022-04-04 | Outpatient (REF) | payer OTHER | LOC: M LAB REF 18:42 | PROVIDERS: ATTEND Physician Assistant | DX: N39.0 Urinary tract infection, site not specified (principal) ==

== ENCOUNTER → 2022-06-06 | Outpatient (REF) | payer OTHER | LOC: M WUC 18:12 | PROVIDERS: ATTEND Physician Assistant | DX: R30.0 Dysuria (principal) ==

== ENCOUNTER 2022-07-20 13:16 | Emergency (ER) | payer OTHER ==
[~2022-07-20] VITALS: Ht 147.3 cm; Wt 68.2 kg
[~2022-07-20 13:16] MED LIST changes: -BENI1TAB3 PO; +OLME20TA55 PO
[2022-07-20 14:01] LABS: BASO % 0.5 % (0.0-1.0); EOS # 0.3 10^3/uL (0.0-0.5); EOS % 3.9 % (0.0-3.0); HEMATOCRIT 41.2 % (36.0-47.0); HEMOGLOBIN 14.2 g/dl (12.0-15.5); LYMPH # 1.1 10^3/uL (1.5-5.0); LYMPH % 13.6 % (24.0-44.0); MEAN CORPUSCULAR HEMOGLOBIN 31.8 pg (27.0-33.0); MEAN CORPUSCULAR HGB CONC 34.5 g/dl (32.0-36.5); MEAN CORPUSCULAR VOLUME 92.4 fl (80.0-96.0); MONO # 0.5 10^3/uL (0.0-0.8); MONO % 6.4 % (2.0-8.0); NEUTROPHILS # 6.3 10^3/uL (1.5-8.5); NEUTROPHILS % 75.1 % (36.0-66.0); PLATELET COUNT, AUTOMATED 199 10^3/uL (150-450); RED BLOOD COUNT 4.46 10^6/uL (4.00-5.40); WHITE BLOOD COUNT 8.4 10^3/uL (4.0-10.0)
[2022-07-20 14:18] LABS: INR 0.91; PROTHROMBIN TIME 12.5 SECONDS (12.5-14.5)
[2022-07-20 14:19] LABS: PARTIAL THROMBOPLASTIN TIME 30.5 SECONDS (24.8-34.2)
[2022-07-20 14:36] LABS: ALBUMIN 3.7 GM/DL (3.2-5.2); ALT/SGPT 34 U/L (12-78); BILIRUBIN,DIRECT 0.2 MG/DL (0.0-0.2); BILIRUBIN,TOTAL 0.6 MG/DL (0.2-1.0); BLOOD UREA NITROGEN 14 MG/DL (7-18); CARBON DIOXIDE LEVEL 24 MEQ/L (21-32); CHLORIDE LEVEL 106 MEQ/L (98-107); CREATININE FOR GFR 0.84 MG/DL (0.55-1.30); GLOMERULAR FILTRATION RATE > 60.0 (>45); GLUCOSE, FASTING 119 MG/DL (70-100); POTASSIUM SERUM 3.8 MEQ/L (3.5-5.1); SODIUM LEVEL 138 MEQ/L (136-145); TOTAL PROTEIN 7.2 GM/DL (6.4-8.2)
[2022-07-20] MEDS ORDERED: ISOVUE-370 76% 100ML VIAL As Ordered ONE (14:55)
[2022-07-20 17:21] VITALS: BP 131/86
[2022-07-20] MEDS ORDERED: KETO10TAB PO (17:55)
== END 2022-07-20 18:25 | disposition home or self-care (01) ==
LOC: M ED 13:16 → EDBD 13:16 → M ED 18:25
DX: S80.811A Abrasion, right lower leg, initial encounter (principal); S80.812A Abrasion, left lower leg, initial encounter; S20.319A Abrasion of unspecified front wall of thorax, initial encounter; V49.40XA Driver injured in collision with unspecified motor vehicles in traffic accident, initial encounter; R94.31 Abnormal electrocardiogram [ECG] [EKG]; I10 Essential (primary) hypertension; M54.50 Low back pain, unspecified; E78.5 Hyperlipidemia, unspecified; Z88.2 Allergy status to sulfonamides; Z88.1 Allergy status to other antibiotic agents; Z91.040 Latex allergy status; Y92.410 Unspecified street and highway as the place of occurrence of the external cause; Y93.9 Activity, unspecified
CPT/HCPCS: 36415; 70450; 71260; 72125; 73590; 74177; 80047; 80048; 80076; 85025; 85610; 85730; 86850; 86900; 86901; 93005; 93041; 94760; 99285; Q9967

== ENCOUNTER 2022-09-15 13:33 | Emergency (ER) | payer OTHER ==
[~2022-09-15] VITALS: Ht 144.8 cm; Wt 70.3 kg
[~2022-09-15 13:33] MED LIST changes: +KETO10TAB PO
[2022-09-15] MEDS ORDERED: CYCL-707 (13:52)
[2022-09-15] MEDS ORDERED: FLUT12AE2 (13:52)
[2022-09-15] MEDS ORDERED: ATOR1TAB21 (13:52)
[2022-09-15] MEDS ORDERED: OMEP40CA5 (13:52)
[2022-09-15] MEDS ORDERED: METH-1164 PO (16:27)
[2022-09-15] MEDS ORDERED: CEPH500C PO (16:28)
[2022-09-15 16:37] VITALS: BP 134/66
== END 2022-09-15 16:38 | disposition home or self-care (01) ==
LOC: M ED 13:33
DX: M54.2 Cervicalgia (principal); M79.606 Pain in leg, unspecified; L03.90 Cellulitis, unspecified; W00.0XXA Fall on same level due to ice and snow, initial encounter; I10 Essential (primary) hypertension; E78.5 Hyperlipidemia, unspecified; Z88.1 Allergy status to other antibiotic agents; Z88.2 Allergy status to sulfonamides; Z91.040 Latex allergy status; Z79.82 Long term (current) use of aspirin; Z79.84 Long term (current) use of oral hypoglycemic drugs; Z79.899 Other long term (current) drug therapy

== ENCOUNTER 2022-10-09 05:31 | Emergency (ER) | payer OTHER ==
[~2022-10-09] VITALS: Ht 147.3 cm; Wt 69.7 kg
[~2022-10-09 05:31] MED LIST changes: +ATOR1TAB21; +CEPH500C PO; +CYCL-707; +FLUT12AE2; +METH-1164 PO; +OMEP40CA5
[2022-10-09] MEDS ORDERED: CYCLOBENZAPRINE 10MG TABLET PO ONE (08:00)
[2022-10-09] MEDS ORDERED: LIDOCAINE 5% (LIDODERM) PATCH TD ONE (08:00)
[2022-10-09] MEDS ORDERED: ACETAMINOPHEN 500 MG TAB PO ONE (08:00)
[2022-10-09] MEDS ORDERED: LIDO5DIS41 TOP (10:20)
[2022-10-09 10:55] VITALS: BP 154/79
== END 2022-10-09 11:20 | disposition home or self-care (01) ==
LOC: M ED 05:31
DX: M51.17 Intervertebral disc disorders with radiculopathy, lumbosacral region (principal); M51.26 Other intervertebral disc displacement, lumbar region; I10 Essential (primary) hypertension; E78.5 Hyperlipidemia, unspecified; K21.9 Gastro-esophageal reflux disease without esophagitis; J45.909 Unspecified asthma, uncomplicated; Z88.2 Allergy status to sulfonamides; Z88.1 Allergy status to other antibiotic agents; Z91.040 Latex allergy status; Z79.899 Other long term (current) drug therapy; Z79.84 Long term (current) use of oral hypoglycemic drugs

== ENCOUNTER → 2022-10-27 | Outpatient (CLI) | payer OTHER ==
[~2022-10-27] MED LIST changes: +LIDO5DIS41 TOP
== END ==
LOC: M WHC 10:57
PROVIDERS: ATTEND Advanced Practice Midwife
DX: Z12.31 Encounter for screening mammogram for malignant neoplasm of breast (principal)

== ENCOUNTER → 2022-11-21 | Outpatient (REF) | payer OTHER | LOC: M WUC 18:42 | PROVIDERS: ATTEND Physician Assistant | DX: R30.0 Dysuria (principal) ==

== ENCOUNTER 2023-10-08 14:33 | Emergency (ER) | payer OTHER ==
[~2023-10-08] VITALS: Ht 147.3 cm; Wt 63.7 kg
[2023-10-08] MEDS ORDERED: ADVA115A (15:00)
[2023-10-08] MEDS ORDERED: ALBU8.5H (15:00)
[2023-10-08 19:10] LABS: ERYTHROCYTE SEDIMENTATION RATE 101 mm/hr (0-30)
[2023-10-08] MEDS ORDERED: ALBUTEROL 90 MCG/ACT 8GM HFA INHALER INH ONE (19:35)
[2023-10-08 19:47] LABS: BASO % 0.3 % (0.0-1.0); EOS # 0.2 10^3/uL (0.0-0.5); EOS % 2.1 % (0.0-3.0); HEMATOCRIT 39.2 % (36.0-47.0); HEMOGLOBIN 13.2 g/dl (12.0-15.5); LYMPH # 1.8 10^3/uL (1.5-5.0); LYMPH % 18.2 % (24.0-44.0); MEAN CORPUSCULAR HEMOGLOBIN 31.7 pg (27.0-33.0); MEAN CORPUSCULAR HGB CONC 33.7 g/dl (32.0-36.5); MEAN CORPUSCULAR VOLUME 94.2 fl (80.0-96.0); MONO # 0.7 10^3/uL (0.0-0.8); MONO % 6.7 % (2.0-8.0); NEUTROPHILS # 7.3 10^3/uL (1.5-8.5); NEUTROPHILS % 72.4 % (36.0-66.0); PLATELET COUNT, AUTOMATED 218 10^3/uL (150-450); RED BLOOD COUNT 4.16 10^6/uL (4.00-5.40); WHITE BLOOD COUNT 10.1 10^3/uL (4.0-10.0)
[2023-10-08 21:42] LABS: BLOOD UREA NITROGEN 12 MG/DL (9-23); CALCIUM LEVEL 8.2 MG/DL (8.3-10.6); CARBON DIOXIDE LEVEL 25 MMOL/L (20-31); CHLORIDE LEVEL 107 MMOL/L (98-107); GLOMERULAR FILTRATION RATE > 60.0 (>45); GLUCOSE, FASTING 112 MG/DL (74-106); SODIUM LEVEL 138 MMOL/L (136-145)
[2023-10-08 21:56] LABS: URIC ACID 4.1 MG/DL (3.1-7.8)
[2023-10-08] MEDS ORDERED: INDOMETHACIN 25 MG CAP PO ONE (22:40)
[2023-10-08] MEDS ORDERED: INDO50CA91 PO (22:42)
[2023-10-08 23:00] VITALS: BP 140/75; TEMP 99.2; O2SAT 92
== END 2023-10-08 23:02 | disposition home or self-care (01) ==
LOC: M ED 14:33
DX: M17.12 Unilateral primary osteoarthritis, left knee (principal); R22.42 Localized swelling, mass and lump, left lower limb; Z79.52 Long term (current) use of systemic steroids; Z79.82 Long term (current) use of aspirin; Z79.83 Long term (current) use of bisphosphonates; Z79.899 Other long term (current) drug therapy; Z88.1 Allergy status to other antibiotic agents; Z88.2 Allergy status to sulfonamides; Z91.040 Latex allergy status

== ENCOUNTER → 2023-11-02 | Outpatient (CLI) | payer OTHER ==
[~2023-11-02] MED LIST changes: +ADVA115A; +ALBU8.5H; +INDO50CA91 PO
== END ==
LOC: M WHC 10:47
PROVIDERS: ATTEND Advanced Practice Midwife
DX: Z12.31 Encounter for screening mammogram for malignant neoplasm of breast (principal)

== ENCOUNTER → 2023-12-09 | Outpatient (CLI) | payer OTHER, MEDICARE ==
[2023-12-09 17:12] LABS: BLOOD UREA NITROGEN 16 MG/DL (9-23); CREATININE FOR GFR 0.72 MG/DL (0.55-1.30); GLOMERULAR FILTRATION RATE > 60.0 (>45)
== END ==
LOC: M LAB 16:15
PROVIDERS: ATTEND Psychiatry & Neurology Neurology
DX: I10 Essential (primary) hypertension (principal)

== ENCOUNTER → 2025-02-07 | Outpatient (CLI) | payer MEDICARE ==
[~2025-02-07] MED LIST changes: -FEXO-117 PO; +FEXO-193 PO
== END ==
LOC: M WHC 13:15
PROVIDERS: ATTEND Advanced Practice Midwife
DX: Z12.31 Encounter for screening mammogram for malignant neoplasm of breast (principal); R92.313 Mammographic fatty tissue density, bilateral breasts

== ENCOUNTER 2025-02-09 22:29 | Emergency (ER) | payer MEDICARE, OTHER ==
[~2025-02-09] VITALS: Ht 147.3 cm; Wt 76.4 kg
[2025-02-10 02:30] VITALS: BP 162/80; O2SAT 93
[2025-02-10 02:52] VITALS: TEMP 97.2
== END 2025-02-10 02:53 | disposition home or self-care (01) ==
LOC: M ED 22:29
DX: T16.2XXA Foreign body in left ear, initial encounter (principal); I10 Essential (primary) hypertension; Z88.2 Allergy status to sulfonamides; Z88.1 Allergy status to other antibiotic agents; Z91.040 Latex allergy status; Z79.52 Long term (current) use of systemic steroids; Z79.82 Long term (current) use of aspirin; Z79.02 Long term (current) use of antithrombotics/antiplatelets; Z79.899 Other long term (current) drug therapy; Y92.009 Unspecified place in unspecified non-institutional (private) residence as the place of occurrence of the external cause; Y93.89 Activity, other specified; Y99.9 Unspecified external cause status